=== PATIENT | male | born 1955 | race Caucasian/White ===

== ENCOUNTER 2018-04-05 19:22 | Emergency (ER) | payer OTHER, SELFPAY ==
[2018-04-05 19:37] VITALS: BP 142/76; PULSE 65; RESP 16; TEMP 36.5; O2SAT 100; BMI 26.6
--- NOTE | 2018-04-05 19:47 | ED.TRAUMA ---
HPI - Trauma <MAYA Parker - Last Filed: 04/05/18 22:11> General Chief Complaint: Extremity Injury, Upper Stated Complaint: LT THUMB INJURY Time Seen by Provider: 04/05/18 19:37 Source: patient and family Mode of arrival: ambulatory Limitations: no limitations History of Present Illness HPI narrative: Patient presented after crush injury to left thumb in a ladder 2 days ago. It occurred at work. He states is not getting any better and he is concerned about the bruising underneath the nail. He has been using ibuprofen and icing it. He denies any decreased range of motion but complains of severe pain. He states his finger did bleed initially. He is not sure when he had his last tetanus vaccination. Related Data Allergies Allergy/AdvReac Type Severity Reaction Status Date / Time bupropion [From Wellbutrin] Allergy Verified 04/05/18 20:06 varenicline [From Chantix] Allergy Verified 04/05/18 20:06 Review of Systems <MAYA Parker - Last Filed: 04/05/18 22:11> Review of Systems GENERAL: Denies chills, fatigue, malaise, fever, sweats. HEENT: Denies sinus pain, ear pain, sore throat, difficulty swallowing, dizziness. RESPIRATORY: Denies dyspnea, cough, wheezing, hemoptysis, sputum. CARDIOVASCULAR: Denies chest pain, palpitations, orthopnea, edema, GASTROINTESTINAL: Denies nausea, vomiting, abdominal pain, diarrhea, constipation, melena. : Denies dysuria, frequency, incontinence, hematuria, urinary retention. MUSCULOSKELETAL: See HPI SKIN: See HPI NEUROLOGIC: Denies weakness, headache, numbness, change in speech, confusion, seizures, incoordination. PSYCHIATRIC: No concerning psychosocial issues. 12 point review of systems is negative except for those stated above Exam <MAYA Parker - Last Filed: 04/05/18 22:11> Narrative Exam Narrative: GENERAL: This is a well-nourished, well-developed patient, in no acute distress sitting on stretcher. HEAD: Atraumatic. Normocephalic. No temporal or scalp tenderness. EYES: Pupils equal round and reactive. Extraocular motions intact. No scleral icterus. No injection or drainage. ENT: Nose without bleeding, purulent drainage or septal hematoma. Throat without erythema, tonsillar hypertrophy or exudate. Uvula midline. Airway patent. NECK: Trachea midline. No JVD or lymphadenopathy. Supple, nontender, no meningeal signs. CARDIOVASCULAR: Regular rate and rhythm. RESPIRATORY: No cough in office. GASTROINTESTINAL: Abdomen soft, non-tender, nondistended. No hepato-splenomegaly, or palpable masses. No guarding. EXTREMITIES: Range of motion intact left thumb. Pain to palpation distal phalanx left thumb. BACK: Nontender without deformity or crepitance. No flank tenderness. NEURO: AOx3. SKIN: Subungual hematoma present left thumb. Ecchymosis several approximately 4-5 mm below nail bed. Subungual hematoma took up approximately 50% of left thumb nail bed. Initial Vital Signs Initial Vital Signs: Vital Signs Temperature 97.7 F 04/05/18 19:37 Pulse Rate 65 04/05/18 19:37 Respiratory Rate 16 04/05/18 19:37 Blood Pressure 142/76 H 04/05/18 19:37 Pulse Oximetry 100 04/05/18 19:37 <Calixto Beard DO - Last Filed: 04/06/18 01:03> Initial Vital Signs Initial Vital Signs: Vital Signs Temperature 97.7 F 04/05/18 19:37 Pulse Rate 65 04/05/18 19:37 Respiratory Rate 16 04/05/18 19:37 Blood Pressure 142/76 H 04/05/18 19:37 Pulse Oximetry 100 04/05/18 19:37 Procedures <KORTNEY Parker - Last Filed: 04/05/18 22:11> Nail Trephination Time out: Yes Location (finger): left Location (toes): first digit Sterile prep: betadine Method of drainage: nail cautery Procedure successful: Yes Patient tolerated procedure: well Course <KORTNEY Parker - Last Filed: 04/05/18 22:11> Orders Ordered: ED Orders 04/05/18 19:47 XR finger LT min 2V Stat Discontinued Medications Diphtheria/Tetanus/Acell Pertussis (Adacel) 0.5 ml IM .ONCE ONE Stop: 04/05/18 19:48 Last Admin: 04/05/18 20:04 Dose: 0.5 ml Ibuprofen (Advil) 800 mg PO NOW ONE Stop: 04/05/18 20:18 Last Admin: 04/05/18 20:39 Dose: 800 mg Vital Signs - 8 hr 04/05/18 19:37 04/05/18 21:13 Temperature 97.7 F Pulse Rate 65 78 Respiratory Rate 16 16 Blood Pressure 142/76 H 145/60 H Pulse Oximetry 100 97 <Calixto Beard DO - Last Filed: 04/06/18 01:03> Orders Ordered: ED Orders 04/05/18 19:47 XR finger LT min 2V Stat Discontinued Medications Diphtheria/Tetanus/Acell Pertussis (Adacel) 0.5 ml IM .ONCE ONE Stop: 04/05/18 19:48 Last Admin: 04/05/18 20:04 Dose: 0.5 ml Ibuprofen (Advil) 800 mg PO NOW ONE Stop: 04/05/18 20:18 Last Admin: 04/05/18 20:39 Dose: 800 mg Vital Signs - 8 hr 04/05/18 19:37 04/05/18 21:13 Temperature 97.7 F Pulse Rate 65 78 Respiratory Rate 16 16 Blood Pressure 142/76 H 145/60 H Pulse Oximetry 100 97 MDM - Trauma <KORTNEY Parker - Last Filed: 04/05/18 22:11> Imaging Data finger xray: Radiologist's impression: [place] [address] XRay Report Signed Patient: Niles Michelle MR#: [id number] : 1955 Acct:[id number] Age/Sex: 63 / M Date of Service: 04/05/18 Loc: ED Accession Number: [id number] Procedure: XR finger LT min 2V Ordering Provider: Dipika Lira PROCEDURE: XR FINGER LT MIN 2V INDICATIONS: left thumb crush injury TECHNIQUE: AP hand, 2 views of the first finger(s) acquired. COMPARISON: [facility] - [place], [place], CR, WRIST COMP MIN 3VW (LT), 01/04/2009, 9:01. [facility], CR, WRIST COMP MIN 3VW (LT), 11/17/2008, 19:48. FINDINGS: Bones: No acute fractures or dislocations. Old fixation hardware is noted in distal radius. No suspicious bony lesions. Soft tissues: No suspicious soft tissue calcifications. IMPRESSION: No fractures or dislocation. Dictated by: Dorina Renteria M.D. on 04/05/2018 at 20:25 Approved by: Dorina Renteria M.D. on 04/05/2018 at 20:28 [facility] Narrative Medical decision making narrative: Patient presented with subungual hematoma. It was drained according to procedural note. Patient tolerated it well. His x-ray came back negative for any fracture. We did update his tetanus as he bled from a crush injury between a ladder. He was medicated with ibuprofen and given an ice pack for comfort in the emergency department. I discussed at length follow up with primary care provider if noted signs of infection including dirty drainage, extending redness and fever. Patient's L and I paperwork was filled out. He had no questions or concerns upon discharge. Discharge Plan Departure Patient Disposition: Home, Self-Care Clinical Impression: Hematoma, subungual, thumb, left Discharge Date/Time: 04/05/18 21:13 Interventions: ED Discharge Assessment Last Done: 04/05/18 21:13 Instructions: DI for Hematoma (Bruise), How To Perform RICE (Rest, Ice, Compress, Elevate) Activity Restrictions/Additional Instructions: Your x-ray came back negative. Monitor for any signs and symptoms of infection from the puncture site. This includes pus, fever, warmth and redness. I suggest ibuprofen for the pain. Please use rest ice elevation and compression. Follow up with the primary care provider especially if the reaccumulation of the hematoma with pain. <Calixto Beard DO - Last Filed: 04/06/18 01:03> Cosign ED Attending Gloria Attestation: I was available for consultation during this patient's emergency department encounter
[2018-04-05] MEDS: TET,DIPH,PERTUSS(ACELL),VAC/PF 0.5 ML SYRINGE IM (20:04)
[2018-04-05] MEDS: IBUPROFEN 400 MG TABLET 800 MG PO (20:39)
--- NOTE | 2018-04-05 20:59 | ED_ITS ---
HPI - Trauma <MAYA Parker - Last Filed: 04/05/18 22:11> General Chief Complaint: Extremity Injury, Upper Stated Complaint: LT THUMB INJURY Time Seen by Provider: 04/05/18 19:37 Source: patient and family Mode of arrival: ambulatory Limitations: no limitations History of Present Illness HPI narrative: Patient presented after crush injury to left thumb in a ladder 2 days ago. It occurred at work. He states is not getting any better and he is concerned about the bruising underneath the nail. He has been using ibuprofen and icing it. He denies any decreased range of motion but complains of severe pain. He states his finger did bleed initially. He is not sure when he had his last tetanus vaccination. Related Data Allergies Allergy/AdvReac Type Severity Reaction Status Date / Time bupropion [From Wellbutrin] Allergy Verified 04/05/18 20:06 varenicline [From Chantix] Allergy Verified 04/05/18 20:06 Review of Systems <MAYA Parker - Last Filed: 04/05/18 22:11> Review of Systems GENERAL: Denies chills, fatigue, malaise, fever, sweats. HEENT: Denies sinus pain, ear pain, sore throat, difficulty swallowing, dizziness. RESPIRATORY: Denies dyspnea, cough, wheezing, hemoptysis, sputum. CARDIOVASCULAR: Denies chest pain, palpitations, orthopnea, edema, GASTROINTESTINAL: Denies nausea, vomiting, abdominal pain, diarrhea, constipation, melena. : Denies dysuria, frequency, incontinence, hematuria, urinary retention. MUSCULOSKELETAL: See HPI SKIN: See HPI NEUROLOGIC: Denies weakness, headache, numbness, change in speech, confusion, seizures, incoordination. PSYCHIATRIC: No concerning psychosocial issues. 12 point review of systems is negative except for those stated above Exam <MAYA Parker - Last Filed: 04/05/18 22:11> Narrative Exam Narrative: GENERAL: This is a well-nourished, well-developed patient, in no acute distress sitting on stretcher. HEAD: Atraumatic. Normocephalic. No temporal or scalp tenderness. EYES: Pupils equal round and reactive. Extraocular motions intact. No scleral icterus. No injection or drainage. ENT: Nose without bleeding, purulent drainage or septal hematoma. Throat without erythema, tonsillar hypertrophy or exudate. Uvula midline. Airway patent. NECK: Trachea midline. No JVD or lymphadenopathy. Supple, nontender, no meningeal signs. CARDIOVASCULAR: Regular rate and rhythm. RESPIRATORY: No cough in office. GASTROINTESTINAL: Abdomen soft, non-tender, nondistended. No hepato-splenomegaly , or palpable masses. No guarding. EXTREMITIES: Range of motion intact left thumb. Pain to palpation distal phalanx left thumb. BACK: Nontender without deformity or crepitance. No flank tenderness. NEURO: AOx3. SKIN: Subungual hematoma present left thumb. Ecchymosis several approximately 4-5 mm below nail bed. Subungual hematoma took up approximately 50% of left thumb nail bed. Initial Vital Signs Initial Vital Signs: Vital Signs Temperature 97.7 F 04/05/18 19:37 Pulse Rate 65 04/05/18 19:37 Respiratory Rate 16 04/05/18 19:37 Blood Pressure 142/76 H 04/05/18 19:37 Pulse Oximetry 100 04/05/18 19:37 <Calixto Beard DO - Last Filed: 04/06/18 01:03> Initial Vital Signs Initial Vital Signs: Vital Signs Temperature 97.7 F 04/05/18 19:37 Pulse Rate 65 04/05/18 19:37 Respiratory Rate 16 04/05/18 19:37 Blood Pressure 142/76 H 04/05/18 19:37 Pulse Oximetry 100 04/05/18 19:37 Procedures <KORTNEY Parker - Last Filed: 04/05/18 22:11> Nail Trephination Time out: Yes Location (finger): left Location (toes): first digit Sterile prep: betadine Method of drainage: nail cautery Procedure successful: Yes Patient tolerated procedure: well Course <KORTNEY Parker - Last Filed: 04/05/18 22:11> Orders Ordered: ED Orders 04/05/18 19:47 XR finger LT min 2V Stat Discontinued Medications Diphtheria/Tetanus/Acell Pertussis (Adacel) 0.5 ml IM .ONCE ONE Stop: 04/05/18 19:48 Last Admin: 04/05/18 20:04 Dose: 0.5 ml Ibuprofen (Advil) 800 mg PO NOW ONE Stop: 04/05/18 20:18 Last Admin: 04/05/18 20:39 Dose: 800 mg Vital Signs - 8 hr 04/05/18 19:37 04/05/18 21:13 Temperature 97.7 F Pulse Rate 65 78 Respiratory Rate 16 16 Blood Pressure 142/76 H 145/60 H Pulse Oximetry 100 97 <Calixto Beard DO - Last Filed: 04/06/18 01:03> Orders Ordered: ED Orders 04/05/18 19:47 XR finger LT min 2V Stat Discontinued Medications Diphtheria/Tetanus/Acell Pertussis (Adacel) 0.5 ml IM .ONCE ONE Stop: 04/05/18 19:48 Last Admin: 04/05/18 20:04 Dose: 0.5 ml Ibuprofen (Advil) 800 mg PO NOW ONE Stop: 04/05/18 20:18 Last Admin: 04/05/18 20:39 Dose: 800 mg Vital Signs - 8 hr 04/05/18 19:37 04/05/18 21:13 Temperature 97.7 F Pulse Rate 65 78 Respiratory Rate 16 16 Blood Pressure 142/76 H 145/60 H Pulse Oximetry 100 97 MDM - Trauma <KORTNEY Parker - Last Filed: 04/05/18 22:11> Imaging Data finger xray: Radiologist's impression: [place] [address] XRay Report Signed Patient: Niles Michelle MR#: [id number] : 1955 Acct:[id number] Age/Sex: 63 / M Date of Service: 04/05/18 Loc: ED Accession Number: [id number] Procedure: XR finger LT min 2V Ordering Provider: Dipika Lira PROCEDURE: XR FINGER LT MIN 2V INDICATIONS: left thumb crush injury TECHNIQUE: AP hand, 2 views of the first finger(s) acquired. COMPARISON: [facility] - [place], CR, WRIST COMP MIN 3VW (LT), 2008, 9:01. [facility], CR, WRIST COMP MIN 3VW (LT), 11/17/2008, 19:48. FINDINGS: Bones: No acute fractures or dislocations. Old fixation hardware is noted in distal radius. No suspicious bony lesions. Soft tissues: No suspicious soft tissue calcifications. IMPRESSION: No fractures or dislocation. Dictated by: Dorina Renteria M.D. on 04/05/2018 at 20:25 Approved by: Dorina Renteria M.D. on 04/05/2018 at 20:28 [facility] Narrative Medical decision making narrative: Patient presented with subungual hematoma. It was drained according to procedural note. Patient tolerated it well. His x- ray came back negative for any fracture. We did update his tetanus as he bled from a crush injury between a ladder. He was medicated with ibuprofen and given an ice pack for comfort in the emergency department. I discussed at length follow up with primary care provider if noted signs of infection including dirty drainage, extending redness and fever. Patient's L and I paperwork was filled out. He had no questions or concerns upon discharge. Discharge Plan Departure Patient Disposition: Home, Self-Care Clinical Impression: Hematoma, subungual, thumb, left Discharge Date/Time: 04/05/18 21:13 Interventions: ED Discharge Assessment Last Done: 04/05/18 21:13 Instructions: DI for Hematoma (Bruise), How To Perform RICE (Rest, Ice, Compress, Elevate) Activity Restrictions/Additional Instructions: Your x-ray came back negative. Monitor for any signs and symptoms of infection from the puncture site. This includes pus, fever, warmth and redness. I suggest ibuprofen for the pain. Please use rest ice elevation and compression. Follow up with the primary care provider especially if the reaccumulation of the hematoma with pain. <Calixto Beard DO - Last Filed: 04/06/18 01:03> Cosign ED Attending Gloria Attestation: I was available for consultation during this patient's emergency department encounter
[2018-04-05 21:13] VITALS: BP 145/60; PULSE 78; RESP 16; O2SAT 97
== END 2018-04-05 21:13 | disposition home or self-care (01) ==
PROVIDERS: Emergency Provider Nurse Practitioner Family
DX: S60.112A Contusion of left thumb with damage to nail, initial encounter (principal); W23.0XXA Caught, crushed, jammed, or pinched between moving objects, initial encounter; Y99.0 Civilian activity done for income or pay
CPT/HCPCS: 11740; 73140; 90471; 99282; 99283; 90715

== ENCOUNTER → 2019-10-06 11:28 | Outpatient (CLI) | payer OTHER, SELFPAY | PROVIDERS: PCP Family Medicine; Referring Provider Family Medicine; Visit Provider Family Medicine | DX: R19.8 Other specified symptoms and signs involving the digestive system and abdomen (principal) | CPT/HCPCS: 86677 ==

== ENCOUNTER → 2019-10-16 12:36 | Outpatient (CLI) | payer OTHER, SELFPAY ==
[2019-10-16 13:28] LABS: Hemoglobin A1C% w Est Avg Glu 9.8 % (4.0-6.0)
== END ==
PROVIDERS: PCP Family Medicine; Referring Provider Family Medicine; Visit Provider Family Medicine
DX: E11.9 Type 2 diabetes mellitus without complications (principal)
CPT/HCPCS: 36415; 83036

== ENCOUNTER → 2020-01-05 12:07 | Outpatient (CLI) | payer OTHER, SELFPAY ==
[2020-01-05 13:06] LABS: Add Manual Diff / Slide Review NO; Basophils Absolute Auto 100 /uL (0-100); Basophils Percent Auto 1.6 % (0-2); Eosinophils Absolute Auto 100 /uL (0-450); Eosinophils Percent Auto 1.7 % (2-4); Hematocrit 46.3 % (41-53); Hemoglobin 16.2 g/dL (13.5-17.5); Lymphocytes Absolute Auto 1500 /uL (1100-4500); Lymphocytes Percent Auto 30.4 % (25-40); Mean Corpuscular HGB Conc 35.1 % (30-36); Mean Corpuscular Hemoglobin 32.4 PG (26-34); Mean Corpuscular Volume 92.4 fL (80-100); Monocytes Absolute Auto 600 /uL (0-900); Monocytes Percent Auto 13.1 % (3-14); Neutrophils Absolute Auto 2600 /uL (1500-7000); Neutrophils Percent Auto 53.2 % (50-75); Platelet Count 201 X10^3/uL (150-400); Red Blood Cell Count 5.02 X10^6/uL (4.5-5.9); Red Cell Distribution Width 13.6 % (11.6-14.8)
[2020-01-05 13:28] LABS: Alanine Aminotransferase 21 IU/L (<50); Albumin 4.6 g/dL (3.5-5.0); Albumin Globulin Ratio 1.3 (1.0-2.8); Alkaline Phosphatase 83 U/L (38-126); Aspartate Aminotransferase 29 IU/L (17-59); BUN Creatinine Ratio 29.7 (6-22); Bilirubin Total 0.5 mg/dL (0.2-1.3); Blood Urea Nitrogen 19 mg/dL (9-20); Calcium 9.2 mg/dL (8.4-10.2); Carbon Dioxide 24 mmol/L (22-32); Chloride 102 mmol/L (98-107); Cholesterol 195 mg/dL (140-199); Estimated Glomerular Filt Rate > 60.0 mL/min (>60); Globulin 3.5 g/dL (1.7-4.1); Glucose 149 mg/dL (80-110); HDL Cholesterol 37 mg/dL (40-60); HEMOLYSIS < 15 (0-50); LDL Cholesterol Calculated 110 mg/dL (<100); Potassium 3.8 mmol/L (3.4-5.1); Sodium 139 mmol/L (137-145); Total Protein 8.1 g/dL (6.3-8.2); Triglycerides 238 mg/dL (35-150)
[2020-01-05 13:57] LABS: TSH w/ Reflex to FT4 2.04 uIU/mL (0.47-4.68)
[2020-01-05 14:52] LABS: Hemoglobin A1C% w Est Avg Glu 8.4 % (4.0-6.0)
== END ==
PROVIDERS: PCP Family Medicine; Referring Provider Family Medicine; Visit Provider Family Medicine
DX: Z12.5 Encounter for screening for malignant neoplasm of prostate (principal); Z13.29 Encounter for screening for other suspected endocrine disorder; E11.9 Type 2 diabetes mellitus without complications; E55.9 Vitamin D deficiency, unspecified; E78.5 Hyperlipidemia, unspecified; I10 Essential (primary) hypertension
CPT/HCPCS: 36415; 80053; 80061; 82306; 83036; 84443; 85025

== ENCOUNTER 2020-04-02 13:11 | Emergency (ER) | payer OTHER, SELFPAY ==
[2020-04-02 13:15] VITALS: BP 185/99; PULSE 79; RESP 20; TEMP 37.3; O2SAT 97
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
== END 2020-04-02 14:53 | disposition home or self-care (01) ==
PROVIDERS: Emergency Provider Nurse Practitioner Family; PCP Family Medicine
DX: S16.1XXA Strain of muscle, fascia and tendon at neck level, initial encounter (principal); V89.2XXA Person injured in unspecified motor-vehicle accident, traffic, initial encounter; I10 Essential (primary) hypertension; E11.9 Type 2 diabetes mellitus without complications
CPT/HCPCS: 71046; 99281; 99283

== ENCOUNTER → 2020-04-22 12:40 | Outpatient (CLI) | payer OTHER, SELFPAY ==
[2020-04-22 13:56] LABS: Hemoglobin A1C% w Est Avg Glu 8.3 % (4.0-6.0)
== END ==
PROVIDERS: PCP Family Medicine; Referring Provider Family Medicine; Visit Provider Family Medicine
DX: E11.9 Type 2 diabetes mellitus without complications (principal)
CPT/HCPCS: 36415; 83036

== ENCOUNTER → 2020-04-26 10:07 | Outpatient (CLI) | payer OTHER, SELFPAY ==
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
== END ==
PROVIDERS: PCP Family Medicine; Referring Provider Family Medicine; Visit Provider Family Medicine
DX: M54.40 Lumbago with sciatica, unspecified side (principal); M47.817 Spondylosis without myelopathy or radiculopathy, lumbosacral region
CPT/HCPCS: 72100

== ENCOUNTER → 2020-05-24 10:45 | Outpatient (CLI) | payer OTHER, SELFPAY ==
--- NOTE | 2020-05-24 10:48 | DI.MRI.S_ITS ---
PROCEDURE: MR LUMBAR SPINE WO CON INDICATIONS: worsening lumbar pain with worsening radiculopathy TECHNIQUE: Noncontrast sagittal T1 spin echo and T2 fast echo, sagittal STIR, axial T1 and T2 fast spin echo through the lumbar spine. In cases with scoliosis, additional coronal T2 fast spin echo may be performed. COMPARISON: [facility], CR, XR LUMBAR SPINE 2-3V, 04/26/2020, 10:00. FINDINGS: Image quality: Excellent. Alignment and Curvature: 5 lumbar type vertebral bodies are present by plain film. There is loss of normal lumbar lordosis. There is mild, grade 1 retrolisthesis of L5 on S1. Bone Marrow: Marrow is of normal overall signal. No acute vertebral body compression fractures. Moderate reactive signal within the endplates adjacent to the L5-S1 intervertebral disc. Spinal Cord: Conus medullaris terminates at the mid L2 level. Visualized cord demonstrates normal signal and size. Paraspinous Soft Tissues: No paravertebral masses. There is mild ectasia of the infrarenal abdominal aorta measuring 26 mm short axis. L1-L2: Normal appearance. L2-L3: Normal appearance. L3-L4: Normal appearance. L4-L5: Mild facet hypertrophy. No significant canal, or foraminal stenosis. L5-S1: Moderate disc height loss and desiccation. Mild diffuse disc bulge with small superimposed right paracentral protrusion. Mild bilateral facet hypertrophy. Mild canal stenosis. There is severe bilateral foraminal stenosis with bilateral L5 nerve root compression. There is mild posterior deviation of the right S1 nerve root within the lateral recess. IMPRESSION: 1. Multilevel degenerative disc and facet disease, causing mild multilevel canal stenosis. 2. Multilevel foraminal stenosis, worst at L5-S1, where there is associated L5 nerve root compression. 3. Posterior deviation of the right S1 nerve root within the lateral recess at L5-S1 as described above. 4. Recommend correlation with clinical symptoms to ascertain relevance of these findings. Dictated by: Félix Hopkins M.D. on 05/24/2020 at 14:23 Approved by: Félix Hopkins M.D. on 05/24/2020 at 14:26
== END ==
PROVIDERS: PCP Family Medicine; Referring Provider Family Medicine; Visit Provider Family Medicine
DX: M51.17 Intervertebral disc disorders with radiculopathy, lumbosacral region (principal); M48.07 Spinal stenosis, lumbosacral region; G57.00 Lesion of sciatic nerve, unspecified lower limb
CPT/HCPCS: 72148

== ENCOUNTER → 2020-08-07 13:09 | Outpatient (CLI) | payer OTHER, SELFPAY | PROVIDERS: PCP Family Medicine; Referring Provider Family Medicine; Visit Provider Family Medicine | DX: E11.9 Type 2 diabetes mellitus without complications (principal) | CPT/HCPCS: 36415; 83036 ==

== ENCOUNTER 2020-09-25 12:15 | Outpatient (RCR) | payer OTHER, SELFPAY ==
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
--- NOTE | 2020-07-08 13:25 | PT-OP ANOTE ---
Pt is a no show to appointment. PT calls and leaves message with next appointment date and time 07/11 at 1300 and asks pt to call if he cannot attend that appointment.
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
--- NOTE | 2020-07-11 13:47 | PT.OPPOC ---
Physical, Occupational & Speech Therapy At [facility] Current Diagnoses Lesion of sciatic nerve, unspecified lower limb (07/11/20) Lumbago with sciatica, right side (07/11/20) Lumbago with sciatica, left side (07/11/20) Visit Care Team Role Provider Type Daniel Jensen DO Attending Provider Physician Primary Care Provider Referring Provider Specialty: [facility] Address: [address] [place] [address], [facility] Email: Plan Of Care PT-OP-T Assessment and Plan Start: 05/31/20 10:56 Freq: Status: Active Protocol: Document 07/11/20 13:03 MB (Rec: 07/11/20 13:47 MB [id number]) Physical Therapy Assessment Goals 4 Mine 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 07/11/2020: Right hip flexion and abduction 5/5 in supine and left hip flexion 5/5 and left hip abduction 4/5. LTG Duration 8 weeks 3 [facility] Goal (LTG) Pt will report a 75% improvement in LE paresthesias to indicate centralization of symptoms by 08/29/2020. 07/11/2020: Pt reports a 50% improvement in numbness and tingling in right leg since starting PT. He does have recurrence of symptoms with any overhead work LTG Duration 8 weeks 2 [facility]ci Goal (LTG) Pt will perform progressive HEP with I including flexibility, pelvic realignment, core and LE strengthening, balance, and ergonomic and body trimmer upholsterer training to improve strength and function by 08/29/2020. 07/11/2020: Pt is performing exercises as much as he can at home. He has trouble on work days (-) LTG Duration 8 weeks 1 [facility] Goal (LTG) Pt will present with improved Oswestry LBP score to reflect no more than 10% impairment to reflect less pain with function and to prepare for safe work by 08/29/2020. 07/11/2020: Oswestry LBP score is 20%, which is a 12% improvement from initial evaluation. LTG Duration 8 weeks Assessment Summary Assessment Since starting PT, pt reports less pain when driving during his commute and less trouble getting in and out of car. He con't to report pain in his back and paresthesias in his leg with working overhead. He may have an antomical anomaly/ derangement contributing to this and may benefit from further work-up in the future. It is unclear how much he has been performing his HEP exercises. Reviewed again today and revised. He will benefit from ongoing PT to improve flexibility, posture, core and LE strength and body mechanics. Barriers include job requirements of overhead work, long drive for commute to work and questionable compliance with HEP. Physical Therapy Plan Frequency and Duration Frequency of Treatment 2x/Week Duration of Treatment 8 weeks Plan of Care Start Date 07/11/20 Plan of Care End Date 08/29/20 Therapeutic Interventions Therapeutic Interventions Balance Training,Canalithic Repositioning,Home Exercise Program,Joint Mobilizations, Manual Therapy,Neuromuscular Re-education,Patient/Caregiver Education,Self-Care/Home Management,Soft Tissue Mobilization,Taping, Therapeutic Activities, Therapeutic Exercises Next Visit Focus/Plan Next Note Type Treatment Note Next Visit Plan Further advance exercises as appropriate: standing calf and hamstring stretches, thoracic stretch in standing (doorway) and racquet ball massage Plan of Care Dates Plan of Care Start Date 07/11/20 Plan of Care End Date 08/29/20 Electronically Signed by: Alba Perez, PT 07/11/20 [id number] Please Sign and Return: I have reviewed this Plan of Care and certify that the skilled therapy services above are required to meet the patient?s needs. Physician Signature Date Printed Name and Credentials Clinical Instructor Signature Printed Name and Credentials
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
--- NOTE | 2020-08-26 13:31 | PT.OPPOC ---
Physical, Occupational & Speech Therapy At [facility] Current Diagnoses Lesion of sciatic nerve, unspecified lower limb (08/26/20) Lumbago with sciatica, right side (08/26/20) Lumbago with sciatica, left side (08/26/20) Visit Care Team Role Provider Type Daniel Jensen DO Attending Provider Physician Primary Care Provider Referring Provider Specialty: [facility] Address: [address] [place] [address], [facility] Email: Plan Of Care PT-OP-T Assessment and Plan Start: 05/31/20 10:56 Freq: Status: Active Protocol: Document 08/26/20 12:17 MB (Rec: 08/26/20 13:16 MB [id number]) Physical Therapy Assessment Rehab Potential Rehabilitation Potential Good Evaluation Complexity Number of Personal Factors/Comorbidities 1-2 Number of Body Systems Impaired 1-2 Clinical Presentation at Evaluation Evolving Impairments Impairments Pain,Posture,ROM,Sensation, Soft Tissue Mobility,Strength Goals 4 Seed Cleaner Operator Goal (LTG) Pt will present with improved R hip abduction and great toe extension strength to 5/5 to improve gait and balance by . 08/26/2020: Left hip abduction is 5/5 today LTG Duration Met 3 Correction Goal (LTG) Pt will report a 75% improvement in LE paresthesias to indicate centralization of symptoms by 08/29/2020. 08/26/2020: Pt reports an overall 75% improvement in LE paresthesias LTG Duration Met 2 Correction Goal (LTG) Pt will perform progressive HEP with I including flexibility, pelvic realignment, core and LE strengthening, balance, and ergonomic and body stylist training to improve strength and function by 10/27/20. 08/26/2020: Pt is performing stretching exercises at work at least twice. LTG Duration 8 weeks 1 Correction Goal (LTG) Pt will present with improved Oswestry LBP score to reflect no more than 5% impairment to reflect less pain with function and to prepare for safe work by 10/27/2020. 08/26/2020: Oswestry LBP score is much better and reflects 8 % impairment. He is having less pain overall and less pain with traveling. LTG Duration 8 weeks Progress Towards Goals Progress Towards Goals Progressing Toward Goals Assessment Summary Assessment Pt states that after last manual treatment, he felt a lot better for about a week. He is performing exercises at work and PT will review with him in future PT treatments. He has met LE strengthening goals, paresthesia goals and has progressed towards Oswestry goal that was updated today. Con't PT to improve myofascial flexibility and posture, ongoing body mechanics training. Pt has progressed towards all goals since starting PT. Anticipate 2 treatments this week and then decrease to 1x/wk. Physical Therapy Plan Frequency and Duration Frequency of Treatment 2x/Week Duration of Treatment 8 weeks Plan of Care Start Date 08/26/20 Plan of Care End Date 10/27/20 Therapeutic Interventions Therapeutic Interventions Balance Training,Canalithic Repositioning,Home Exercise Program,Joint Mobilizations, Manual Therapy,Neuromuscular Re-education,Patient/Caregiver Education,Self-Care/Home Management,Soft Tissue Mobilization,Taping, Therapeutic Activities, Therapeutic Exercises Modalities Cold Pack/Ice Massage,Hot Packs Next Visit Focus/Plan Next Note Type Treatment Note Next Visit Plan Review and revise exercises as needed. Con't manual work. Do not add further standing stretches. Plan of Care Dates Plan of Care Start Date 08/26/20 Plan of Care End Date 10/27/20 Electronically Signed by: Alba Perez, PT 08/26/20 2718 Please Sign and Return: I have reviewed this Plan of Care and certify that the skilled therapy services above are required to meet the patient?s needs. Physician Signature Date Printed Name and Credentials Clinical Instructor Signature Printed Name and Credentials
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
== END 2020-09-30 15:00 ==
LOC: PHYS 12:15
PROVIDERS: PCP Family Medicine; Referring Provider Family Medicine; Visit Provider Family Medicine
DX: M54.42 Lumbago with sciatica, left side (principal); M54.41 Lumbago with sciatica, right side; G57.00 Lesion of sciatic nerve, unspecified lower limb
CPT/HCPCS: 97010; 97110; 97140; 97161; 97530; 97535

== ENCOUNTER → 2020-11-20 13:07 | Outpatient (CLI) | payer OTHER, SELFPAY ==
[2020-11-20 14:02] LABS: Add Manual Diff / Slide Review NO; Basophils Absolute Auto 100 /uL (0-100); Basophils Percent Auto 1.3 % (0-2); Eosinophils Absolute Auto 100 /uL (0-450); Eosinophils Percent Auto 2.3 % (2-4); Hematocrit 47.1 % (41-53); Hemoglobin 16.2 g/dL (13.5-17.5); Lymphocytes Absolute Auto 1500 /uL (1100-4500); Lymphocytes Percent Auto 33.7 % (25-40); Mean Corpuscular HGB Conc 34.5 % (30-36); Mean Corpuscular Hemoglobin 32.2 PG (26-34); Mean Corpuscular Volume 93.3 fL (80-100); Monocytes Absolute Auto 700 /uL (0-900); Monocytes Percent Auto 14.5 % (3-14); Neutrophils Absolute Auto 2200 /uL (1500-7000); Neutrophils Percent Auto 48.2 % (50-75); Platelet Count 209 X10^3/uL (150-400); Red Blood Cell Count 5.05 X10^6/uL (4.5-5.9); Red Cell Distribution Width 13.9 % (11.6-14.8); White Blood Cell Count 4.6 X10^3/uL (4.5-11.0)
[2020-11-20 15:11] LABS: Alanine Aminotransferase 16 IU/L (<50); Albumin 4.4 g/dL (3.5-5.0); Albumin Globulin Ratio 1.3 (1.0-2.8); Alkaline Phosphatase 74 U/L (38-126); Aspartate Aminotransferase 29 IU/L (17-59); BUN Creatinine Ratio 29.8 (6-22); Bilirubin Total 0.5 mg/dL (0.2-1.3); Blood Urea Nitrogen 17 mg/dL (9-20); Carbon Dioxide 24 mmol/L (22-32); Chloride 102 mmol/L (98-107); Cholesterol 250 mg/dL (140-199); Estimated Glomerular Filt Rate > 60.0 mL/min (>60); Globulin 3.3 g/dL (1.7-4.1); Glucose 158 mg/dL (80-110); HDL Cholesterol 48 mg/dL (40-60); HEMOLYSIS 67 (0-50); LDL Cholesterol Calculated 136 mg/dL (<100); Potassium 3.9 mmol/L (3.4-5.1); Sodium 136 mmol/L (137-145); Total Protein 7.7 g/dL (6.3-8.2); Triglycerides 328 mg/dL (35-150)
[2020-11-20 15:12] LABS: Hemoglobin A1C% w Est Avg Glu 7.7 % (4.0-6.0)
[2020-11-20 15:41] LABS: Prostate Specific Antigen Scrn 0.623 ng/mL (0.1-4.0)
== END ==
PROVIDERS: PCP Family Medicine; Referring Provider Family Medicine; Visit Provider Family Medicine
DX: E11.9 Type 2 diabetes mellitus without complications (principal); E78.5 Hyperlipidemia, unspecified; I10 Essential (primary) hypertension; Z12.5 Encounter for screening for malignant neoplasm of prostate
CPT/HCPCS: 36415; 80053; 80061; 83036; 85025; G0103

== ENCOUNTER → 2021-03-03 09:31 | Outpatient (CLI) | payer OTHER, SELFPAY ==
--- NOTE | 2021-03-03 09:33 | DI.RAD.S_ITS ---
PROCEDURE: XR FOOT LT MIN 3V INDICATIONS: left foot pain TECHNIQUE: 3 views of the foot were acquired. COMPARISON: None. FINDINGS: Bones: No fractures or dislocations. No suspicious bony lesions. Soft tissues: No tibiotalar joint effusion. Achilles tendon appears normal. IMPRESSION: No trauma found. Dictated by: Collin Pires M.D. on 03/03/2021 at 10:06 Approved by: Collin Pires M.D. on 03/03/2021 at 10:06
== END ==
PROVIDERS: PCP Family Medicine; Referring Provider Physician Assistant; Visit Provider Physician Assistant
DX: M79.672 Pain in left foot (principal)
CPT/HCPCS: 73630

== ENCOUNTER → 2021-03-06 14:35 | Outpatient (CLI) | payer OTHER, SELFPAY ==
[2021-03-06 15:12] LABS: COVID19 -Nasal RAPID Negative (Negative)
== END ==
PROVIDERS: PCP Family Medicine; Visit Provider Family Medicine
DX: R05 Cough (principal); Z20.822 Contact with and (suspected) exposure to COVID-19
CPT/HCPCS: 87635

== ENCOUNTER → 2021-05-22 09:58 | Outpatient (CLI) | payer OTHER, SELFPAY ==
[2021-05-22 10:51] LABS: Add Manual Diff / Slide Review NO; Basophils Absolute Auto 100 /uL (0-100); Eosinophils Absolute Auto 100 /uL (0-450); Eosinophils Percent Auto 1.6 % (2-4); Hematocrit 47.8 % (41-53); Hemoglobin 16.1 g/dL (13.5-17.5); Lymphocytes Absolute Auto 1400 /uL (1100-4500); Lymphocytes Percent Auto 24.9 % (25-40); Mean Corpuscular HGB Conc 33.8 % (30-36); Mean Corpuscular Volume 94.7 fL (80-100); Monocytes Absolute Auto 800 /uL (0-900); Monocytes Percent Auto 14.4 % (3-14); Neutrophils Absolute Auto 3200 /uL (1500-7000); Neutrophils Percent Auto 58.1 % (50-75); Platelet Count 220 X10^3/uL (150-400); Red Blood Cell Count 5.05 X10^6/uL (4.5-5.9); Red Cell Distribution Width 13.9 % (11.6-14.8); White Blood Cell Count 5.4 X10^3/uL (4.5-11.0)
[2021-05-22 11:05] LABS: Hemoglobin A1C% w Est Avg Glu 7.3 % (4.0-6.0)
[2021-05-22 11:34] LABS: Alanine Aminotransferase 14 IU/L (<50); Albumin 4.2 g/dL (3.5-5.0); Albumin Globulin Ratio 1.4 (1.0-2.8); Alkaline Phosphatase 78 U/L (38-126); Aspartate Aminotransferase 20 IU/L (17-59); BUN Creatinine Ratio 26.1 (6-22); Bilirubin Total 0.8 mg/dL (0.2-1.3); Blood Urea Nitrogen 18 mg/dL (9-20); Calcium 9.1 mg/dL (8.4-10.2); Carbon Dioxide 29 mmol/L (22-32); Chloride 102 mmol/L (98-107); Cholesterol 210 mg/dL (140-199); Estimated Glomerular Filt Rate > 60.0 mL/min (>60); Globulin 3.1 g/dL (1.7-4.1); Glucose 147 mg/dL (80-110); HDL Cholesterol 43 mg/dL (40-60); HEMOLYSIS < 15 (0-50); LDL Cholesterol Calculated 119 mg/dL (<100); Potassium 3.7 mmol/L (3.4-5.1); Sodium 137 mmol/L (137-145); Total Protein 7.3 g/dL (6.3-8.2); Triglycerides 241 mg/dL (35-150)
== END ==
PROVIDERS: PCP Family Medicine; Referring Provider Family Medicine; Visit Provider Family Medicine
DX: E11.42 Type 2 diabetes mellitus with diabetic polyneuropathy (principal); E78.5 Hyperlipidemia, unspecified; I10 Essential (primary) hypertension; Z12.5 Encounter for screening for malignant neoplasm of prostate
CPT/HCPCS: 36415; 80053; 80061; 83036; 85025

== ENCOUNTER 2021-06-17 12:15 | Outpatient (RCR) | payer OTHER, SELFPAY ==
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
--- NOTE | 2021-05-02 13:44 | PT.OTN ---
Current Diagnoses Lumbago with sciatica, right side (05/02/21) Lumbago with sciatica, left side (05/02/21) Physical Therapy Treatment Note PT-OP-A Visit Information Start: 04/30/21 12:12 Freq: Status: Active Protocol: Document 05/02/21 12:59 MB (Rec: 05/02/21 13:40 MB [id number]) Out-Patient Physical Therapy Visit Information Visit Information Visit Type Treatment Note Visit Note [facility], self-pay Visit Start Time 12:59 Visit Stop Time 13:44 Total Visit Minutes 45 Visit Number 2 PT-OP-B Current Condition Start: 04/30/21 12:12 Freq: Status: Active Protocol: Document 05/01/21 10:30 MB (Rec: 05/01/21 10:50 MB [id number]) Current Condition History of Current Condition Onset Date Progressive Current Complaints LB and posterior leg pain returning History of Current Condition Pt returns with recurrence of back pain after lifting ceiling fan up on 5th wheel over the weekend. He had PT the end of last year and his pain had gotten better. He has not been performing exercises . The pain has progressively returned. He con't to have the most LB and B posterior leg pain when reaching overhead. 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 He has fallen a couple of times. The steps going up to the RV are different than regular steps. Pt con't to smoke 3-4 cigarettes a day and is vaping more. 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 MRI 05/24/2020 reveals many changes including multilevel DDD, stenosis, L5 nerve root compression with deviation of right S1 nerve root, lateral recess at L5-S1 Treatment Goals Patient/Caregiver Goals To decrease pain PT-OP-C Subjective Start: 04/30/21 12:12 Freq: Status: Active Protocol: Document 05/02/21 12:59 MB (Rec: 05/02/21 13:40 MB [id number]) OP-PT Subjective Patient Comments Patient Comments Pt states that he was sore after PT evaluation. Work was hectic last night. PT-OP-G Mobility & Gait Start: 04/30/21 12:12 Freq: Status: Active Protocol: Document 05/01/21 10:30 MB (Rec: 05/01/21 15:40 MB [id number]) OP Gait Assessment Comments Gait Comments Gait barefoot: decreased pelvic movement B, walks stiffer through the right leg and pt states that his right ball of foot and toes are starting to bother him as far as paresthesias. Decreased arm swing with gait. PT-OP-J Posture/Palpation/Skin Start: 04/30/21 12:12 Freq: Status: Active Protocol: Document 05/01/21 10:30 MB (Rec: 05/01/21 15:40 MB [id number]) Posture Evaluation Comments Posture Comments Standing posture in bare feet: forward head, rounded shoulders, decreased overall muscle mass and increased abdominal soft tissue, Dowager 's hump, left scapula higher than the right and right iliac crest higher than the left. PT-OP-K Range of Motion Start: 04/30/21 12:12 Freq: Status: Active Protocol: Document 05/01/21 10:30 MB (Rec: 05/01/21 15:40 MB [id number]) Hip Goniometric Range of Motion Hip ROM Limitations Comments B SLR limited with grossly 40 deg B and more compensatory movement with left testing PT-OP-M Strength Start: 04/30/21 12:12 Freq: Status: Active Protocol: Document 05/01/21 10:30 MB (Rec: 05/01/21 15:40 MB [id number]) Hip Strength Hip Manual Muscle Testing Bilateral Flexion (L2) 5 Normal Abduction 5 Normal Adduction 5 Normal Knee Strength Knee Manual Muscle Testing Bilateral Flexion (S2) 5 Normal Extension (L3) 5 Normal Ankle/Foot Strength Ankle and Foot Manual Muscle Testing Bilateral Dorsiflexion (L4) 5 Normal Inversion 5 Normal Eversion (S1) 5 Normal Toe Strength Toe Manual Muscle Testing Left Great Toe Extension 4 Good Right Great Toe Extension 4 Good PT-OP-Q Treatments Start: 04/30/21 12:12 Freq: Status: Active Protocol: Document 05/02/21 12:59 MB (Rec: 05/02/21 13:40 MB [id number]) Therapeutic Exercises Supine Exercises Niles stretch with abdominal drawing in first Side bilateral Comments Pelvic tilt and tummy tight first, then leg off Pelvic realignment exercises Side bilateral Comments 5 reps, 3 sec hold all exercises Sitting Exercises Hip rotator stretch Side bilateral Comments 30 sec hold each Hamstring stretch, toes up Side bilateral Comments 30 sec hold Standing Exercises Racquet ball massage glutes and paraspinals Comments Pt performs today all areas Self-Care/Home Management Treatment Education Other Education Body mechanics ed with photo handouts to include planning before lifting, using glutes and quads, bending at knees, golfer's list, proper desk set up and car seat position PT-OP-T Assessment and Plan Start: 04/30/21 12:12 Freq: Status: Active Protocol: Document 05/02/21 12:59 MB (Rec: 05/02/21 13:40 MB [id number]) Physical Therapy Assessment Rehab Potential Rehabilitation Potential Fair Evaluation Complexity Number of Personal Factors/Comorbidities 3 or More Number of Body Systems Impaired 3 Clinical Presentation at Evaluation Evolving Impairments Impairments Activity Tolerance,Gait,Pain, Posture,ROM,Sensation,Soft Tissue Mobility,Strength Other Impairments Personal factors include 2 hour commute by car 4-5x/wk, working 55 hours a week, ongoing nicotine use, not compliant with HEP as previously provided by this PT . Body systems affected include musculoskeletal, neuromuscular, metabolic and neurological. Pt reports right greater than left toe paresthesias and he has a history of DM and right sciatica with lumbar changes. His clinical presentation is evolving to unstable. Other Concerns Fall Risk Yes Goals 3 Senior Technical Specialist Goal (LTG) Pt will perform WNLs on a standardized balance test to decrease fall risk by 07/01/21. LTG Duration 8 weeks 2 [facility]ci Goal (LTG) Pt will be compliant with progressive HEP including pelvic realignment, flexibility, core and LE strengthening, balance and body mechanics to decrease pain and improve strength by 07/01/21. LTG Duration 8 weeks 1 Senior Technical Specialist Goal (LTG) Pt will report a 75% improvement in back and leg pain to improve quality of life by 07/01/21. LTG Duration 8 weeks Assessment Summary Assessment Initiated pelvic realignment, sitting flexibility, racquet ball and ergonomic training today. Con't to encourage pt to make these small changes in his daily routine. Manual work next treatment date. Physical Therapy Plan Frequency and Duration Frequency of Treatment 2x/Week Duration of Treatment 8 weeks Plan of Care Start Date 05/01/21 Plan of Care End Date 07/01/21 Therapeutic Interventions Therapeutic Interventions Balance Training,Canalithic Repositioning,Gait Training, Home Exercise Program,Joint Mobilizations,Manual Therapy, Neuromuscular Re-education, Patient/Caregiver Education, Self-Care/Home Management,Soft Tissue Mobilization,Taping, Therapeutic Activities, Therapeutic Exercises Modalities Cold Pack/Ice Massage,Hot Packs Other Referrals/Consults Referrals/Consults Recommended Pain specialist referral Next Visit Focus/Plan Next Note Type Treatment Note Next Visit Plan Progressive flexibility and core progression, manual work
--- NOTE | 2021-05-16 13:15 | PT.OTN ---
Current Diagnoses Lumbago with sciatica, right side (05/16/21) Lumbago with sciatica, left side (05/16/21) Physical Therapy Treatment Note PT-OP-A Visit Information Start: 04/30/21 12:12 Freq: Status: Active Protocol: Document 05/16/21 12:17 MB (Rec: 05/16/21 13:06 MB [id number]) Out-Patient Physical Therapy Visit Information Visit Information Visit Type Treatment Note Visit Note [facility], self-pay Visit Start Time 12:17 Visit Stop Time 13:17 Total Visit Minutes 60 Visit Number 3 PT-OP-B Current Condition Start: 04/30/21 12:12 Freq: Status: Active Protocol: Document 05/01/21 10:30 MB (Rec: 05/01/21 10:50 MB [id number]) Current Condition History of Current Condition Onset Date Progressive Current Complaints LB and posterior leg pain returning History of Current Condition Pt returns with recurrence of back pain after lifting ceiling fan up on 5th wheel over the weekend. He had PT the end of last year and his pain had gotten better. He has not been performing exercises . The pain has progressively returned. He con't to have the most LB and B posterior leg pain when reaching overhead. 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 He has fallen a couple of times. The steps going up to the RV are different than regular steps. Pt con't to smoke 3-4 cigarettes a day and is vaping more. 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 MRI 05/24/2020 reveals many changes including multilevel DDD, stenosis, L5 nerve root compression with deviation of right S1 nerve root, lateral recess at L5-S1 Treatment Goals Patient/Caregiver Goals To decrease pain PT-OP-C Subjective Start: 04/30/21 12:12 Freq: Status: Active Protocol: Document 05/16/21 12:17 MB (Rec: 05/16/21 13:06 MB [id number]) OP-PT Subjective Patient Comments Patient Comments Pt states that his back is the same and he has been trying some of his exercises and doesn't know if he is doing them correctly. PT-OP-G Mobility & Gait Start: 04/30/21 12:12 Freq: Status: Active Protocol: Document 05/01/21 10:30 MB (Rec: 05/01/21 15:40 MB [id number]) OP Gait Assessment Comments Gait Comments Gait barefoot: decreased pelvic movement B, walks stiffer through the right leg and pt states that his right ball of foot and toes are starting to bother him as far as paresthesias. Decreased arm swing with gait. PT-OP-J Posture/Palpation/Skin Start: 04/30/21 12:12 Freq: Status: Active Protocol: Document 05/01/21 10:30 MB (Rec: 05/01/21 15:40 MB [id number]) Posture Evaluation Comments Posture Comments Standing posture in bare feet: forward head, rounded shoulders, decreased overall muscle mass and increased abdominal soft tissue, Dowager 's hump, left scapula higher than the right and right iliac crest higher than the left. PT-OP-K Range of Motion Start: 04/30/21 12:12 Freq: Status: Active Protocol: Document 05/01/21 10:30 MB (Rec: 05/01/21 15:40 MB [id number]) Hip Goniometric Range of Motion Hip ROM Limitations Comments B SLR limited with grossly 40 deg B and more compensatory movement with left testing PT-OP-M Strength Start: 04/30/21 12:12 Freq: Status: Active Protocol: Document 05/01/21 10:30 MB (Rec: 05/01/21 15:40 MB [id number]) Hip Strength Hip Manual Muscle Testing Bilateral Flexion (L2) 5 Normal Abduction 5 Normal Adduction 5 Normal Knee Strength Knee Manual Muscle Testing Bilateral Flexion (S2) 5 Normal Extension (L3) 5 Normal Ankle/Foot Strength Ankle and Foot Manual Muscle Testing Bilateral Dorsiflexion (L4) 5 Normal Inversion 5 Normal Eversion (S1) 5 Normal Toe Strength Toe Manual Muscle Testing Left Great Toe Extension 4 Good Right Great Toe Extension 4 Good PT-OP-Q Treatments Start: 04/30/21 12:12 Freq: Status: Active Protocol: Document 05/16/21 12:17 MB (Rec: 05/16/21 13:06 MB [id number]) Therapeutic Exercises Supine Exercises Niles stretch with abdominal drawing in first Side bilateral Comments Pelvic tilt and tummy tight first, then leg off Pelvic realignment exercises Side bilateral Comments 5 reps, 3 sec hold all exercises Sitting Exercises Hip rotator stretch Side bilateral Comments 30 sec hold each Hamstring stretch, toes up Side bilateral Comments 30 sec hold Manual Therapy Treatment Other Other Manual Treatments Pt kneeling on wedge and leaning over plinth: STM B thoracolumbar paraspinals, QL, TFL and hip rotators. Pt has area of cyst-like or lipoma in left thoracic area intrascapular area. Pt does have discomfort in this area. PT-OP-T Assessment and Plan Start: 04/30/21 12:12 Freq: Status: Active Protocol: Document 05/16/21 12:17 MB (Rec: 05/16/21 13:06 MB [id number]) Physical Therapy Assessment Rehab Potential Rehabilitation Potential Fair Evaluation Complexity Number of Personal Factors/Comorbidities 3 or More Number of Body Systems Impaired 3 Clinical Presentation at Evaluation Evolving Impairments Impairments Activity Tolerance,Gait,Pain, Posture,ROM,Sensation,Soft Tissue Mobility,Strength Other Impairments Personal factors include 2 hour commute by car 4-5x/wk, working 55 hours a week, ongoing nicotine use, not compliant with HEP as previously provided by this PT . Body systems affected include musculoskeletal, neuromuscular, metabolic and neurological. Pt reports right greater than left toe paresthesias and he has a history of DM and right sciatica with lumbar changes. His clinical presentation is evolving to unstable. Other Concerns Fall Risk Yes Goals 3 Supervisor Soldering Goal (LTG) Pt will perform WNLs on a standardized balance test to decrease fall risk by 07/01/21. LTG Duration 8 weeks 2 Supervisor Soldering Goal (LTG) Pt will be compliant with progressive HEP including pelvic realignment, flexibility, core and LE strengthening, balance and body mechanics to decrease pain and improve strength by 07/01/21. LTG Duration 8 weeks 1 Alf Goal (LTG) Pt will report a 75% improvement in back and leg pain to improve quality of life by 07/01/21. LTG Duration 8 weeks Assessment Summary Assessment Reviewed exercises and answered questions today. Also initiated manual work. Con't per below. Physical Therapy Plan Frequency and Duration Frequency of Treatment 2x/Week Duration of Treatment 8 weeks Plan of Care Start Date 05/01/21 Plan of Care End Date 07/01/21 Therapeutic Interventions Therapeutic Interventions Balance Training,Canalithic Repositioning,Gait Training, Home Exercise Program,Joint Mobilizations,Manual Therapy, Neuromuscular Re-education, Patient/Caregiver Education, Self-Care/Home Management,Soft Tissue Mobilization,Taping, Therapeutic Activities, Therapeutic Exercises Modalities Cold Pack/Ice Massage,Hot Packs Other Referrals/Consults Referrals/Consults Recommended Pain specialist referral Next Visit Focus/Plan Next Note Type Treatment Note Next Visit Plan Progressive flexibility and core progression, manual work
--- NOTE | 2021-05-20 12:59 | PT.OTN ---
Current Diagnoses Lumbago with sciatica, right side (05/20/21) Lumbago with sciatica, left side (05/20/21) Physical Therapy Treatment Note PT-OP-A Visit Information Start: 04/30/21 12:12 Freq: Status: Active Protocol: Document 05/20/21 12:14 MB (Rec: 05/20/21 12:36 MB [id number]) Out-Patient Physical Therapy Visit Information Visit Information Visit Type Treatment Note Visit Note [facility], self-pay Visit Start Time 12:14 Visit Stop Time 12:55 Total Visit Minutes 41 Visit Number 4 PT-OP-B Current Condition Start: 04/30/21 12:12 Freq: Status: Active Protocol: Document 05/01/21 10:30 MB (Rec: 05/01/21 10:50 MB [id number]) Current Condition History of Current Condition Onset Date Progressive Current Complaints LB and posterior leg pain returning History of Current Condition Pt returns with recurrence of back pain after lifting ceiling fan up on 5th wheel over the weekend. He had PT the end of last year and his pain had gotten better. He has not been performing exercises . The pain has progressively returned. He con't to have the most LB and B posterior leg pain when reaching overhead. 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 He has fallen a couple of times. The steps going up to the RV are different than regular steps. Pt con't to smoke 3-4 cigarettes a day and is vaping more. 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 MRI 05/24/2020 reveals many changes including multilevel DDD, stenosis, L5 nerve root compression with deviation of right S1 nerve root, lateral recess at L5-S1 Treatment Goals Patient/Caregiver Goals To decrease pain PT-OP-C Subjective Start: 04/30/21 12:12 Freq: Status: Active Protocol: Document 05/20/21 12:14 MB (Rec: 05/20/21 12:36 MB [id number]) OP-PT Subjective Patient Comments Patient Comments Pt states that his back didn't hurt nearly as bad over the weekend. He feels that the exercises help stretch it (his back) out. PT-OP-G Mobility & Gait Start: 04/30/21 12:12 Freq: Status: Active Protocol: Document 05/01/21 10:30 MB (Rec: 05/01/21 15:40 MB [id number]) OP Gait Assessment Comments Gait Comments Gait barefoot: decreased pelvic movement B, walks stiffer through the right leg and pt states that his right ball of foot and toes are starting to bother him as far as paresthesias. Decreased arm swing with gait. PT-OP-J Posture/Palpation/Skin Start: 04/30/21 12:12 Freq: Status: Active Protocol: Document 05/01/21 10:30 MB (Rec: 05/01/21 15:40 MB [id number]) Posture Evaluation Comments Posture Comments Standing posture in bare feet: forward head, rounded shoulders, decreased overall muscle mass and increased abdominal soft tissue, Dowager 's hump, left scapula higher than the right and right iliac crest higher than the left. PT-OP-K Range of Motion Start: 04/30/21 12:12 Freq: Status: Active Protocol: Document 05/01/21 10:30 MB (Rec: 05/01/21 15:40 MB [id number]) Hip Goniometric Range of Motion Hip ROM Limitations Comments B SLR limited with grossly 40 deg B and more compensatory movement with left testing PT-OP-M Strength Start: 04/30/21 12:12 Freq: Status: Active Protocol: Document 05/01/21 10:30 MB (Rec: 05/01/21 15:40 MB [id number]) Hip Strength Hip Manual Muscle Testing Bilateral Flexion (L2) 5 Normal Abduction 5 Normal Adduction 5 Normal Knee Strength Knee Manual Muscle Testing Bilateral Flexion (S2) 5 Normal Extension (L3) 5 Normal Ankle/Foot Strength Ankle and Foot Manual Muscle Testing Bilateral Dorsiflexion (L4) 5 Normal Inversion 5 Normal Eversion (S1) 5 Normal Toe Strength Toe Manual Muscle Testing Left Great Toe Extension 4 Good Right Great Toe Extension 4 Good PT-OP-Q Treatments Start: 04/30/21 12:12 Freq: Status: Active Protocol: Document 05/20/21 12:14 MB (Rec: 05/20/21 12:36 MB [id number]) Therapeutic Exercises Sitting Exercises Core progression Sitting Exercise Name Abdominal drawing in, knee rocking, HS, mini march, bridge, knee fall out Side bilateral Comments B, core engaged first, 10 reps all Manual Therapy Treatment Other Other Manual Treatments Pt kneeling on wedge and leaning over plinth: STM B thoracolumbar paraspinals, QL, TFL and hip rotators PT-OP-T Assessment and Plan Start: 04/30/21 12:12 Freq: Status: Active Protocol: Document 05/20/21 12:14 MB (Rec: 05/20/21 12:36 MB [id number]) Physical Therapy Assessment Rehab Potential Rehabilitation Potential Fair Evaluation Complexity Number of Personal Factors/Comorbidities 3 or More Number of Body Systems Impaired 3 Clinical Presentation at Evaluation Evolving Impairments Impairments Activity Tolerance,Gait,Pain, Posture,ROM,Sensation,Soft Tissue Mobility,Strength Other Impairments Personal factors include 2 hour commute by car 4-5x/wk, working 55 hours a week, ongoing nicotine use, not compliant with HEP as previously provided by this PT . Body systems affected include musculoskeletal, neuromuscular, metabolic and neurological. Pt reports right greater than left toe paresthesias and he has a history of DM and right sciatica with lumbar changes. His clinical presentation is evolving to unstable. Other Concerns Fall Risk Yes Goals 3 Undercutter Goal (LTG) Pt will perform WNLs on a standardized balance test to decrease fall risk by 07/01/21. LTG Duration 8 weeks 2 Undercutter Goal (LTG) Pt will be compliant with progressive HEP including pelvic realignment, flexibility, core and LE strengthening, balance and body mechanics to decrease pain and improve strength by 07/01/21. LTG Duration 8 weeks 1 Senior Care Goal (LTG) Pt will report a 75% improvement in back and leg pain to improve quality of life by 07/01/21. LTG Duration 8 weeks Assessment Summary Assessment Initiated core engagement today and pt will con't to work on at home. Overall, pt does not have a lot of time to do exercises at home and his daily routine of 1 hour car ride 2x/day will con't for the next three years. PT will not be able to make any change in this. PT course may be shorter d/t will be able to maximize education, ther-ex and provide manual intervention as pt is in PT. PT ed pt that PT cannot just continue for manual work, as this is not skilled service towards goals. Pt verbalizes understanding. Long-term, recommend massage therapy after d/c PT. Physical Therapy Plan Frequency and Duration Frequency of Treatment 2x/Week Duration of Treatment 8 weeks Plan of Care Start Date 05/01/21 Plan of Care End Date 07/01/21 Therapeutic Interventions Therapeutic Interventions Balance Training,Canalithic Repositioning,Gait Training, Home Exercise Program,Joint Mobilizations,Manual Therapy, Neuromuscular Re-education, Patient/Caregiver Education, Self-Care/Home Management,Soft Tissue Mobilization,Taping, Therapeutic Activities, Therapeutic Exercises Modalities Cold Pack/Ice Massage,Hot Packs Other Referrals/Consults Referrals/Consults Recommended Pain specialist referral Next Visit Focus/Plan Next Note Type Treatment Note Next Visit Plan Review exercises as needed and progress as able including thoracic mobility exercise/ pect stretch, manual work
--- NOTE | 2021-05-23 12:56 | PT.OTN ---
Current Diagnoses Lumbago with sciatica, right side (05/23/21) Lumbago with sciatica, left side (05/23/21) Physical Therapy Treatment Note PT-OP-A Visit Information Start: 04/30/21 12:12 Freq: Status: Active Protocol: Document 05/23/21 12:13 MB (Rec: 05/23/21 12:56 MB [id number]) Out-Patient Physical Therapy Visit Information Visit Information Visit Type Treatment Note Visit Note [facility], self-pay Visit Start Time 12:13 Visit Stop Time 12:54 Total Visit Minutes 41 Visit Number 5 PT-OP-B Current Condition Start: 04/30/21 12:12 Freq: Status: Active Protocol: Document 05/01/21 10:30 MB (Rec: 05/01/21 10:50 MB [id number]) Current Condition History of Current Condition Onset Date Progressive Current Complaints LB and posterior leg pain returning History of Current Condition Pt returns with recurrence of back pain after lifting ceiling fan up on 5th wheel over the weekend. He had PT the end of last year and his pain had gotten better. He has not been performing exercises . The pain has progressively returned. He con't to have the most LB and B posterior leg pain when reaching overhead. 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 He has fallen a couple of times. The steps going up to the RV are different than regular steps. Pt con't to smoke 3-4 cigarettes a day and is vaping more. 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 MRI 05/24/2020 reveals many changes including multilevel DDD, stenosis, L5 nerve root compression with deviation of right S1 nerve root, lateral recess at L5-S1 Treatment Goals Patient/Caregiver Goals To decrease pain PT-OP-C Subjective Start: 04/30/21 12:12 Freq: Status: Active Protocol: Document 05/23/21 12:13 MB (Rec: 05/23/21 12:56 MB [id number]) OP-PT Subjective Patient Comments Patient Comments Pt has had a busy week. He has worked 45 hours already this week. He sees Dr. Jensen after this treatment to check on his DM. PT-OP-G Mobility & Gait Start: 04/30/21 12:12 Freq: Status: Active Protocol: Document 05/01/21 10:30 MB (Rec: 05/01/21 15:40 MB [id number]) OP Gait Assessment Comments Gait Comments Gait barefoot: decreased pelvic movement B, walks stiffer through the right leg and pt states that his right ball of foot and toes are starting to bother him as far as paresthesias. Decreased arm swing with gait. PT-OP-J Posture/Palpation/Skin Start: 04/30/21 12:12 Freq: Status: Active Protocol: Document 05/01/21 10:30 MB (Rec: 05/01/21 15:40 MB [id number]) Posture Evaluation Comments Posture Comments Standing posture in bare feet: forward head, rounded shoulders, decreased overall muscle mass and increased abdominal soft tissue, Dowager 's hump, left scapula higher than the right and right iliac crest higher than the left. PT-OP-K Range of Motion Start: 04/30/21 12:12 Freq: Status: Active Protocol: Document 05/01/21 10:30 MB (Rec: 05/01/21 15:40 MB [id number]) Hip Goniometric Range of Motion Hip ROM Limitations Comments B SLR limited with grossly 40 deg B and more compensatory movement with left testing PT-OP-M Strength Start: 04/30/21 12:12 Freq: Status: Active Protocol: Document 05/01/21 10:30 MB (Rec: 05/01/21 15:40 MB [id number]) Hip Strength Hip Manual Muscle Testing Bilateral Flexion (L2) 5 Normal Abduction 5 Normal Adduction 5 Normal Knee Strength Knee Manual Muscle Testing Bilateral Flexion (S2) 5 Normal Extension (L3) 5 Normal Ankle/Foot Strength Ankle and Foot Manual Muscle Testing Bilateral Dorsiflexion (L4) 5 Normal Inversion 5 Normal Eversion (S1) 5 Normal Toe Strength Toe Manual Muscle Testing Left Great Toe Extension 4 Good Right Great Toe Extension 4 Good PT-OP-Q Treatments Start: 04/30/21 12:12 Freq: Status: Active Protocol: Document 05/23/21 12:13 MB (Rec: 05/23/21 12:56 MB [id number]) Manual Therapy Treatment Other Other Manual Treatments STM and positional release B hip flexor with pt in supine; B side lying: mobilization QL and thoraco lumbar paraspinals with pt performing coordinated breathing, STM B TFL and glutes, more tension on the right PT-OP-T Assessment and Plan Start: 04/30/21 12:12 Freq: Status: Active Protocol: Document 05/23/21 12:13 MB (Rec: 05/23/21 12:56 MB [id number]) Physical Therapy Assessment Rehab Potential Rehabilitation Potential Fair Evaluation Complexity Number of Personal Factors/Comorbidities 3 or More Number of Body Systems Impaired 3 Clinical Presentation at Evaluation Evolving Impairments Impairments Activity Tolerance,Gait,Pain, Posture,ROM,Sensation,Soft Tissue Mobility,Strength Other Impairments Personal factors include 2 hour commute by car 4-5x/wk, working 55 hours a week, ongoing nicotine use, not compliant with HEP as previously provided by this PT . Body systems affected include musculoskeletal, neuromuscular, metabolic and neurological. Pt reports right greater than left toe paresthesias and he has a history of DM and right sciatica with lumbar changes. His clinical presentation is evolving to unstable. Other Concerns Fall Risk Yes Goals 3 Mcfp Goal (LTG) Pt will perform WNLs on a standardized balance test to decrease fall risk by 07/01/21. LTG Duration 8 weeks 2 Medical Affairs Manager Goal (LTG) Pt will be compliant with progressive HEP including pelvic realignment, flexibility, core and LE strengthening, balance and body mechanics to decrease pain and improve strength by 07/01/21. LTG Duration 8 weeks 1 Mcfp Goal (LTG) Pt will report a 75% improvement in back and leg pain to improve quality of life by 07/01/21. 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 Con't per plan below. Anticipate 4-5 more treatments . Physical Therapy Plan Frequency and Duration Frequency of Treatment 2x/Week Duration of Treatment 8 weeks Plan of Care Start Date 05/01/21 Plan of Care End Date 07/01/21 Therapeutic Interventions Therapeutic Interventions Balance Training,Canalithic Repositioning,Gait Training, Home Exercise Program,Joint Mobilizations,Manual Therapy, Neuromuscular Re-education, Patient/Caregiver Education, Self-Care/Home Management,Soft Tissue Mobilization,Taping, Therapeutic Activities, Therapeutic Exercises Modalities Cold Pack/Ice Massage,Hot Packs Other Referrals/Consults Referrals/Consults Recommended Pain specialist referral Next Visit Focus/Plan Next Note Type Treatment Note Next Visit Plan Review exercises as needed and progress as able including thoracic mobility exercise/ pect stretch, clam with band in hooklying or sitting, quad and ankle strengthening in sitting, mini wall squat, manual work in side lying
--- NOTE | 2021-05-26 12:56 | PT.OTN ---
Current Diagnoses Lumbago with sciatica, right side (05/26/21) Lumbago with sciatica, left side (05/26/21) Physical Therapy Treatment Note PT-OP-A Visit Information Start: 04/30/21 12:12 Freq: Status: Active Protocol: Document 05/26/21 12:15 MB (Rec: 05/26/21 12:24 MB [id number]) Out-Patient Physical Therapy Visit Information Visit Information Visit Type Treatment Note Visit Note [facility], self-pay Visit Start Time 12:15 Visit Stop Time 12:53 Total Visit Minutes 38 Visit Number 6 PT-OP-B Current Condition Start: 04/30/21 12:12 Freq: Status: Active Protocol: Document 05/01/21 10:30 MB (Rec: 05/01/21 10:50 MB [id number]) Current Condition History of Current Condition Onset Date Progressive Current Complaints LB and posterior leg pain returning History of Current Condition Pt returns with recurrence of back pain after lifting ceiling fan up on 5th wheel over the weekend. He had PT the end of last year and his pain had gotten better. He has not been performing exercises . The pain has progressively returned. He con't to have the most LB and B posterior leg pain when reaching overhead. 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 He has fallen a couple of times. The steps going up to the RV are different than regular steps. Pt con't to smoke 3-4 cigarettes a day and is vaping more. 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 MRI 05/24/2020 reveals many changes including multilevel DDD, stenosis, L5 nerve root compression with deviation of right S1 nerve root, lateral recess at L5-S1 Treatment Goals Patient/Caregiver Goals To decrease pain PT-OP-C Subjective Start: 04/30/21 12:12 Freq: Status: Active Protocol: Document 05/26/21 12:15 MB (Rec: 05/26/21 12:24 MB [id number]) OP-PT Subjective Patient Comments Patient Comments Pt reports that after last treatment, he had spasming in his low back for the rest of the day. PT-OP-G Mobility & Gait Start: 04/30/21 12:12 Freq: Status: Active Protocol: Document 05/01/21 10:30 MB (Rec: 05/01/21 15:40 MB [id number]) OP Gait Assessment Comments Gait Comments Gait barefoot: decreased pelvic movement B, walks stiffer through the right leg and pt states that his right ball of foot and toes are starting to bother him as far as paresthesias. Decreased arm swing with gait. PT-OP-J Posture/Palpation/Skin Start: 04/30/21 12:12 Freq: Status: Active Protocol: Document 05/01/21 10:30 MB (Rec: 05/01/21 15:40 MB [id number]) Posture Evaluation Comments Posture Comments Standing posture in bare feet: forward head, rounded shoulders, decreased overall muscle mass and increased abdominal soft tissue, Dowager 's hump, left scapula higher than the right and right iliac crest higher than the left. PT-OP-K Range of Motion Start: 04/30/21 12:12 Freq: Status: Active Protocol: Document 05/01/21 10:30 MB (Rec: 05/01/21 15:40 MB [id number]) Hip Goniometric Range of Motion Hip ROM Limitations Comments B SLR limited with grossly 40 deg B and more compensatory movement with left testing PT-OP-M Strength Start: 04/30/21 12:12 Freq: Status: Active Protocol: Document 05/01/21 10:30 MB (Rec: 05/01/21 15:40 MB [id number]) Hip Strength Hip Manual Muscle Testing Bilateral Flexion (L2) 5 Normal Abduction 5 Normal Adduction 5 Normal Knee Strength Knee Manual Muscle Testing Bilateral Flexion (S2) 5 Normal Extension (L3) 5 Normal Ankle/Foot Strength Ankle and Foot Manual Muscle Testing Bilateral Dorsiflexion (L4) 5 Normal Inversion 5 Normal Eversion (S1) 5 Normal Toe Strength Toe Manual Muscle Testing Left Great Toe Extension 4 Good Right Great Toe Extension 4 Good PT-OP-Q Treatments Start: 04/30/21 12:12 Freq: Status: Active Protocol: Document 05/26/21 12:15 MB (Rec: 05/26/21 12:24 MB [id number]) Manual Therapy Treatment Other Other Manual Treatments Pt kneeling on wedge and leaning over plinth: STM B thoracolumbar paraspinals, QL, TFL and hip rotators PT-OP-T Assessment and Plan Start: 04/30/21 12:12 Freq: Status: Active Protocol: Document 05/26/21 12:15 MB (Rec: 05/26/21 12:24 MB [id number]) Physical Therapy Assessment Rehab Potential Rehabilitation Potential Fair Evaluation Complexity Number of Personal Factors/Comorbidities 3 or More Number of Body Systems Impaired 3 Clinical Presentation at Evaluation Evolving Impairments Impairments Activity Tolerance,Gait,Pain, Posture,ROM,Sensation,Soft Tissue Mobility,Strength Other Impairments Personal factors include 2 hour commute by car 4-5x/wk, working 55 hours a week, ongoing nicotine use, not compliant with HEP as previously provided by this PT . Body systems affected include musculoskeletal, neuromuscular, metabolic and neurological. Pt reports right greater than left toe paresthesias and he has a history of DM and right sciatica with lumbar changes. His clinical presentation is evolving to unstable. Other Concerns Fall Risk Yes Goals 3 Fdc Goal (LTG) Pt will perform WNLs on a standardized balance test to decrease fall risk by 07/01/21. LTG Duration 8 weeks 2 Fdc Goal (LTG) Pt will be compliant with progressive HEP including pelvic realignment, flexibility, core and LE strengthening, balance and body mechanics to decrease pain and improve strength by 07/01/21. LTG Duration 8 weeks 1 Fdc Goal (LTG) Pt will report a 75% improvement in back and leg pain to improve quality of life by 07/01/21. 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 Progress exercises next treatment date. Physical Therapy Plan Frequency and Duration Frequency of Treatment 2x/Week Duration of Treatment 8 weeks Plan of Care Start Date 05/01/21 Plan of Care End Date 07/01/21 Therapeutic Interventions Therapeutic Interventions Balance Training,Canalithic Repositioning,Gait Training, Home Exercise Program,Joint Mobilizations,Manual Therapy, Neuromuscular Re-education, Patient/Caregiver Education, Self-Care/Home Management,Soft Tissue Mobilization,Taping, Therapeutic Activities, Therapeutic Exercises Modalities Cold Pack/Ice Massage,Hot Packs Other Referrals/Consults Referrals/Consults Recommended Pain specialist referral Next Visit Focus/Plan Next Note Type Treatment Note Next Visit Plan Review exercises as needed and progress as able including thoracic mobility exercise/ pect stretch, clam with band in hooklying or sitting, quad and ankle strengthening in sitting, mini wall squat, ongoing manual work
--- NOTE | 2021-05-29 13:08 | PT.OTN ---
Current Diagnoses Lumbago with sciatica, right side (05/29/21) Lumbago with sciatica, left side (05/29/21) Physical Therapy Treatment Note PT-OP-A Visit Information Start: 04/30/21 12:12 Freq: Status: Active Protocol: Document 05/29/21 12:19 MB (Rec: 05/29/21 13:07 MB [id number]) Out-Patient Physical Therapy Visit Information Visit Information Visit Type Treatment Note Visit Note [facility], self-pay Visit Start Time 12:19 Visit Stop Time 13:00 Total Visit Minutes 41 Visit Number 7 PT-OP-B Current Condition Start: 04/30/21 12:12 Freq: Status: Active Protocol: Document 05/01/21 10:30 MB (Rec: 05/01/21 10:50 MB [id number]) Current Condition History of Current Condition Onset Date Progressive Current Complaints LB and posterior leg pain returning History of Current Condition Pt returns with recurrence of back pain after lifting ceiling fan up on 5th wheel over the weekend. He had PT the end of last year and his pain had gotten better. He has not been performing exercises . The pain has progressively returned. He con't to have the most LB and B posterior leg pain when reaching overhead. 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 He has fallen a couple of times. The steps going up to the RV are different than regular steps. Pt con't to smoke 3-4 cigarettes a day and is vaping more. 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 MRI 05/24/2020 reveals many changes including multilevel DDD, stenosis, L5 nerve root compression with deviation of right S1 nerve root, lateral recess at L5-S1 Treatment Goals Patient/Caregiver Goals To decrease pain PT-OP-C Subjective Start: 04/30/21 12:12 Freq: Status: Active Protocol: Document 05/29/21 12:19 MB (Rec: 05/29/21 13:07 MB [id number]) OP-PT Subjective Patient Comments Patient Comments Pt has not been getting many exercises done this week. He has been getting up, going to work, coming home from work and going to bed. PT-OP-G Mobility & Gait Start: 04/30/21 12:12 Freq: Status: Active Protocol: Document 05/01/21 10:30 MB (Rec: 05/01/21 15:40 MB [id number]) OP Gait Assessment Comments Gait Comments Gait barefoot: decreased pelvic movement B, walks stiffer through the right leg and pt states that his right ball of foot and toes are starting to bother him as far as paresthesias. Decreased arm swing with gait. PT-OP-J Posture/Palpation/Skin Start: 04/30/21 12:12 Freq: Status: Active Protocol: Document 05/01/21 10:30 MB (Rec: 05/01/21 15:40 MB [id number]) Posture Evaluation Comments Posture Comments Standing posture in bare feet: forward head, rounded shoulders, decreased overall muscle mass and increased abdominal soft tissue, Dowager 's hump, left scapula higher than the right and right iliac crest higher than the left. PT-OP-K Range of Motion Start: 04/30/21 12:12 Freq: Status: Active Protocol: Document 05/01/21 10:30 MB (Rec: 05/01/21 15:40 MB [id number]) Hip Goniometric Range of Motion Hip ROM Limitations Comments B SLR limited with grossly 40 deg B and more compensatory movement with left testing PT-OP-M Strength Start: 04/30/21 12:12 Freq: Status: Active Protocol: Document 05/01/21 10:30 MB (Rec: 05/01/21 15:40 MB [id number]) Hip Strength Hip Manual Muscle Testing Bilateral Flexion (L2) 5 Normal Abduction 5 Normal Adduction 5 Normal Knee Strength Knee Manual Muscle Testing Bilateral Flexion (S2) 5 Normal Extension (L3) 5 Normal Ankle/Foot Strength Ankle and Foot Manual Muscle Testing Bilateral Dorsiflexion (L4) 5 Normal Inversion 5 Normal Eversion (S1) 5 Normal Toe Strength Toe Manual Muscle Testing Left Great Toe Extension 4 Good Right Great Toe Extension 4 Good PT-OP-Q Treatments Start: 04/30/21 12:12 Freq: Status: Active Protocol: Document 05/29/21 12:19 MB (Rec: 05/29/21 13:07 MB [id number]) Therapeutic Exercises Supine Exercises Pect stretch Side bilateral Comments Arms up over head and to sides for w Sitting Exercises Thoracic rotation Side bilateral Comments Gentle rotation, breathing end -range Manual Therapy Treatment Other Other Manual Treatments Pt kneeling on wedge and leaning over plinth: STM B thoracolumbar paraspinals, QL, TFL and hip rotators. More tension thoracic spine compared to other areas today. PT-OP-T Assessment and Plan Start: 04/30/21 12:12 Freq: Status: Active Protocol: Document 05/29/21 12:19 MB (Rec: 05/29/21 13:07 MB [id number]) Physical Therapy Assessment Rehab Potential Rehabilitation Potential Fair Evaluation Complexity Number of Personal Factors/Comorbidities 3 or More Number of Body Systems Impaired 3 Clinical Presentation at Evaluation Evolving Impairments Impairments Activity Tolerance,Gait,Pain, Posture,ROM,Sensation,Soft Tissue Mobility,Strength Other Impairments Personal factors include 2 hour commute by car 4-5x/wk, working 55 hours a week, ongoing nicotine use, not compliant with HEP as previously provided by this PT . Body systems affected include musculoskeletal, neuromuscular, metabolic and neurological. Pt reports right greater than left toe paresthesias and he has a history of DM and right sciatica with lumbar changes. His clinical presentation is evolving to unstable. 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 LTG Duration 8 weeks 2 Jail Goal (LTG) Pt will be compliant with progressive HEP including pelvic realignment, flexibility, core and LE strengthening, balance and body mechanics to decrease pain and improve strength by 07/01/21. 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 LTG Duration 8 weeks Assessment Summary Assessment Added to flexibility exercises today and encouraged pt to perform them. Ongoing manual work today and pt is feeling better with manual work when lying over plinth. Physical Therapy Plan Frequency and Duration Frequency of Treatment 2x/Week Duration of Treatment 8 weeks Plan of Care Start Date 05/01/21 Plan of Care End Date 07/01/21 Therapeutic Interventions Therapeutic Interventions Balance Training,Canalithic Repositioning,Gait Training, Home Exercise Program,Joint Mobilizations,Manual Therapy, Neuromuscular Re-education, Patient/Caregiver Education, Self-Care/Home Management,Soft Tissue Mobilization,Taping, Therapeutic Activities, Therapeutic Exercises Modalities Cold Pack/Ice Massage,Hot Packs Other Referrals/Consults Referrals/Consults Recommended Pain specialist referral Next Visit Focus/Plan Next Note Type Treatment Note Next Visit Plan Review exercises as needed and progress as able including clam with band in hooklying or sitting, quad and ankle strengthening in sitting, mini wall squat, ongoing manual work
--- NOTE | 2021-06-06 13:49 | PT.OTN ---
Current Diagnoses Lumbago with sciatica, right side (06/06/21) Lumbago with sciatica, left side (06/06/21) Physical Therapy Treatment Note PT-OP-A Visit Information Start: 04/30/21 12:12 Freq: Status: Active Protocol: Document 06/06/21 13:01 MB (Rec: 06/06/21 13:24 MB [id number]) Out-Patient Physical Therapy Visit Information Visit Information Visit Type Treatment Note Visit Note [facility], self-pay Visit Start Time 13:01 Visit Stop Time 13:45 Total Visit Minutes 44 Visit Number 8 PT-OP-B Current Condition Start: 04/30/21 12:12 Freq: Status: Active Protocol: Document 05/01/21 10:30 MB (Rec: 05/01/21 10:50 MB [id number]) Current Condition History of Current Condition Onset Date Progressive Current Complaints LB and posterior leg pain returning History of Current Condition Pt returns with recurrence of back pain after lifting ceiling fan up on 5th wheel over the weekend. He had PT the end of last year and his pain had gotten better. He has not been performing exercises . The pain has progressively returned. He con't to have the most LB and B posterior leg pain when reaching overhead. 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 He has fallen a couple of times. The steps going up to the RV are different than regular steps. Pt con't to smoke 3-4 cigarettes a day and is vaping more. 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 MRI 05/24/2020 reveals many changes including multilevel DDD, stenosis, L5 nerve root compression with deviation of right S1 nerve root, lateral recess at L5-S1 Treatment Goals Patient/Caregiver Goals To decrease pain PT-OP-C Subjective Start: 04/30/21 12:12 Freq: Status: Active Protocol: Document 06/06/21 13:01 MB (Rec: 06/06/21 13:24 MB [id number]) OP-PT Subjective Patient Comments Patient Comments Pt cancelled appointment earlier in the week because he had an appointment about his left wrist. He was told he has tendinitis and he got an injection. He will get therapy for. it. PT-OP-G Mobility & Gait Start: 04/30/21 12:12 Freq: Status: Active Protocol: Document 05/01/21 10:30 MB (Rec: 05/01/21 15:40 MB [id number]) OP Gait Assessment Comments Gait Comments Gait barefoot: decreased pelvic movement B, walks stiffer through the right leg and pt states that his right ball of foot and toes are starting to bother him as far as paresthesias. Decreased arm swing with gait. PT-OP-J Posture/Palpation/Skin Start: 04/30/21 12:12 Freq: Status: Active Protocol: Document 05/01/21 10:30 MB (Rec: 05/01/21 15:40 MB [id number]) Posture Evaluation Comments Posture Comments Standing posture in bare feet: forward head, rounded shoulders, decreased overall muscle mass and increased abdominal soft tissue, Dowager 's hump, left scapula higher than the right and right iliac crest higher than the left. PT-OP-K Range of Motion Start: 04/30/21 12:12 Freq: Status: Active Protocol: Document 05/01/21 10:30 MB (Rec: 05/01/21 15:40 MB [id number]) Hip Goniometric Range of Motion Hip ROM Limitations Comments B SLR limited with grossly 40 deg B and more compensatory movement with left testing PT-OP-M Strength Start: 04/30/21 12:12 Freq: Status: Active Protocol: Document 05/01/21 10:30 MB (Rec: 05/01/21 15:40 MB [id number]) Hip Strength Hip Manual Muscle Testing Bilateral Flexion (L2) 5 Normal Abduction 5 Normal Adduction 5 Normal Knee Strength Knee Manual Muscle Testing Bilateral Flexion (S2) 5 Normal Extension (L3) 5 Normal Ankle/Foot Strength Ankle and Foot Manual Muscle Testing Bilateral Dorsiflexion (L4) 5 Normal Inversion 5 Normal Eversion (S1) 5 Normal Toe Strength Toe Manual Muscle Testing Left Great Toe Extension 4 Good Right Great Toe Extension 4 Good PT-OP-Q Treatments Start: 04/30/21 12:12 Freq: Status: Active Protocol: Document 06/06/21 13:01 MB (Rec: 06/06/21 13:24 MB [id number]) Therapeutic Exercises Sitting Exercises Clam in sitting Side bilateral Resistance Level 2 band Comments 10 reps with cues to squeeze glutes first LAQ with AP and band Side bilateral Resistance Level 2 band Comments LAQ with resistance by band around ankles, AP x10 reps Eversion and DF with band around feet Side bilateral Resistance Level 2 band Comments 10 reps slowly, knees foward, DF first Manual Therapy Treatment Other Other Manual Treatments Pt kneeling on wedge and leaning over plinth: STM B thoracolumbar paraspinals, QL, TFL and hip rotators PT-OP-T Assessment and Plan Start: 04/30/21 12:12 Freq: Status: Active Protocol: Document 06/06/21 13:01 MB (Rec: 06/06/21 13:24 MB [id number]) Physical Therapy Assessment Rehab Potential Rehabilitation Potential Fair Evaluation Complexity Number of Personal Factors/Comorbidities 3 or More Number of Body Systems Impaired 3 Clinical Presentation at Evaluation Evolving Impairments Impairments Activity Tolerance,Gait,Pain, Posture,ROM,Sensation,Soft Tissue Mobility,Strength Other Impairments Personal factors include 2 hour commute by car 4-5x/wk, working 55 hours a week, ongoing nicotine use, not compliant with HEP as previously provided by this PT . Body systems affected include musculoskeletal, neuromuscular, metabolic and neurological. Pt reports right greater than left toe paresthesias and he has a history of DM and right sciatica with lumbar changes. His clinical presentation is evolving to unstable. 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 LTG Duration 8 weeks 2 [facility] Goal (LTG) Pt will be compliant with progressive HEP including pelvic realignment, flexibility, core and LE strengthening, balance and body mechanics to decrease pain and improve strength by 07/01/21. LTG Duration 8 weeks 1 [facility] Goal (LTG) Pt will report a 75% improvement in back and leg pain to improve quality of life by 07/01/21. LTG Duration 8 weeks Assessment Summary Assessment Progressed strength today and ongoing manual work. Anticipate 2 more PT treatments. Pt is feeling as good at this point in therapy as he did the end of last therapy course. Overall, his commute and sedentary lifestyle affect his back pain , prolonged postures at work, decreased strength, body habitus at abdomen and these are barriers to improving pain in the long-term. Physical Therapy Plan Frequency and Duration Frequency of Treatment 2x/Week Duration of Treatment 8 weeks Plan of Care Start Date 05/01/21 Plan of Care End Date 07/01/21 Therapeutic Interventions Therapeutic Interventions Balance Training,Canalithic Repositioning,Gait Training, Home Exercise Program,Joint Mobilizations,Manual Therapy, Neuromuscular Re-education, Patient/Caregiver Education, Self-Care/Home Management,Soft Tissue Mobilization,Taping, Therapeutic Activities, Therapeutic Exercises Modalities Cold Pack/Ice Massage,Hot Packs Other Referrals/Consults Referrals/Consults Recommended Pain specialist referral Next Visit Focus/Plan Next Note Type Treatment Note Next Visit Plan Review ex and manual work
--- NOTE | 2021-06-10 12:59 | PT.OTN ---
Current Diagnoses Lumbago with sciatica, right side (06/10/21) Lumbago with sciatica, left side (06/10/21) Physical Therapy Treatment Note PT-OP-A Visit Information Start: 04/30/21 12:12 Freq: Status: Active Protocol: Document 06/10/21 12:15 MB (Rec: 06/10/21 12:45 MB [id number]) Out-Patient Physical Therapy Visit Information Visit Information Visit Type Treatment Note Visit Note [facility], self-pay Visit Start Time 12:15 Visit Stop Time 12:58 Total Visit Minutes 43 Visit Number 9 PT-OP-B Current Condition Start: 04/30/21 12:12 Freq: Status: Active Protocol: Document 05/01/21 10:30 MB (Rec: 05/01/21 10:50 MB [id number]) Current Condition History of Current Condition Onset Date Progressive Current Complaints LB and posterior leg pain returning History of Current Condition Pt returns with recurrence of back pain after lifting ceiling fan up on 5th wheel over the weekend. He had PT the end of last year and his pain had gotten better. He has not been performing exercises . The pain has progressively returned. He con't to have the most LB and B posterior leg pain when reaching overhead. 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 He has fallen a couple of times. The steps going up to the RV are different than regular steps. Pt con't to smoke 3-4 cigarettes a day and is vaping more. 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 MRI 05/24/2020 reveals many changes including multilevel DDD, stenosis, L5 nerve root compression with deviation of right S1 nerve root, lateral recess at L5-S1 Treatment Goals Patient/Caregiver Goals To decrease pain PT-OP-C Subjective Start: 04/30/21 12:12 Freq: Status: Active Protocol: Document 06/10/21 12:15 MB (Rec: 06/10/21 12:45 MB [id number]) OP-PT Subjective Patient Comments Patient Comments Pt states that the bands ones seem to work the glutes and LB . PT-OP-G Mobility & Gait Start: 04/30/21 12:12 Freq: Status: Active Protocol: Document 05/01/21 10:30 MB (Rec: 05/01/21 15:40 MB [id number]) OP Gait Assessment Comments Gait Comments Gait barefoot: decreased pelvic movement B, walks stiffer through the right leg and pt states that his right ball of foot and toes are starting to bother him as far as paresthesias. Decreased arm swing with gait. PT-OP-J Posture/Palpation/Skin Start: 04/30/21 12:12 Freq: Status: Active Protocol: Document 05/01/21 10:30 MB (Rec: 05/01/21 15:40 MB [id number]) Posture Evaluation Comments Posture Comments Standing posture in bare feet: forward head, rounded shoulders, decreased overall muscle mass and increased abdominal soft tissue, Dowager 's hump, left scapula higher than the right and right iliac crest higher than the left. PT-OP-K Range of Motion Start: 04/30/21 12:12 Freq: Status: Active Protocol: Document 05/01/21 10:30 MB (Rec: 05/01/21 15:40 MB [id number]) Hip Goniometric Range of Motion Hip ROM Limitations Comments B SLR limited with grossly 40 deg B and more compensatory movement with left testing PT-OP-M Strength Start: 04/30/21 12:12 Freq: Status: Active Protocol: Document 05/01/21 10:30 MB (Rec: 05/01/21 15:40 MB [id number]) Hip Strength Hip Manual Muscle Testing Bilateral Flexion (L2) 5 Normal Abduction 5 Normal Adduction 5 Normal Knee Strength Knee Manual Muscle Testing Bilateral Flexion (S2) 5 Normal Extension (L3) 5 Normal Ankle/Foot Strength Ankle and Foot Manual Muscle Testing Bilateral Dorsiflexion (L4) 5 Normal Inversion 5 Normal Eversion (S1) 5 Normal Toe Strength Toe Manual Muscle Testing Left Great Toe Extension 4 Good Right Great Toe Extension 4 Good PT-OP-Q Treatments Start: 04/30/21 12:12 Freq: Status: Active Protocol: Document 06/10/21 12:15 MB (Rec: 06/10/21 12:45 MB [id number]) Therapeutic Exercises Supine Exercises Pect stretch Side bilateral Comments Arms up overhead, w [place] stretch with abdominal drawing in first Side bilateral Comments Pt keeps arms overhead to increase stretch Pelvic realignment exercises Side bilateral Comments 5 reps, 3 sec hold all exercises Sitting Exercises Thoracic rotation Side bilateral Comments Gentle rotation and breathing end-range Core progression Sitting Exercise Name Abdominal drawing in, knee fall out, rocking, HS, mini march, bridge Side bilateral Comments 5 reps and cues for form Hip rotator stretch Side bilateral Comments 30 sec Hamstring stretch, toes up Side bilateral Comments 20-30 sec Manual Therapy Treatment Other Other Manual Treatments Pt kneeling on wedge and leaning over plinth: STM B thoracolumbar paraspinals, QL, TFL and hip rotators PT-OP-T Assessment and Plan Start: 04/30/21 12:12 Freq: Status: Active Protocol: Document 06/10/21 12:15 MB (Rec: 06/10/21 12:45 MB [id number]) Physical Therapy Assessment Rehab Potential Rehabilitation Potential Fair Evaluation Complexity Number of Personal Factors/Comorbidities 3 or More Number of Body Systems Impaired 3 Clinical Presentation at Evaluation Evolving Impairments Impairments Activity Tolerance,Gait,Pain, Posture,ROM,Sensation,Soft Tissue Mobility,Strength Other Impairments Personal factors include 2 hour commute by car 4-5x/wk, working 55 hours a week, ongoing nicotine use, not compliant with HEP as previously provided by this PT . Body systems affected include musculoskeletal, neuromuscular, metabolic and neurological. Pt reports right greater than left toe paresthesias and he has a history of DM and right sciatica with lumbar changes. His clinical presentation is evolving to unstable. 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 LTG Duration 8 weeks 2 Intermediate Goal (LTG) Pt will be compliant with progressive HEP including pelvic realignment, flexibility, core and LE strengthening, balance and body mechanics to decrease pain and improve strength by 07/01/21. 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 LTG Duration 8 weeks Assessment Summary Assessment Exercise review today and manual work. Will prepare for d/c next treatment date. Physical Therapy Plan Frequency and Duration Frequency of Treatment 2x/Week Duration of Treatment 8 weeks Plan of Care Start Date 05/01/21 Plan of Care End Date 07/01/21 Therapeutic Interventions Therapeutic Interventions Balance Training,Canalithic Repositioning,Gait Training, Home Exercise Program,Joint Mobilizations,Manual Therapy, Neuromuscular Re-education, Patient/Caregiver Education, Self-Care/Home Management,Soft Tissue Mobilization,Taping, Therapeutic Activities, Therapeutic Exercises Modalities Cold Pack/Ice Massage,Hot Packs Other Referrals/Consults Referrals/Consults Recommended Pain specialist referral Next Visit Focus/Plan Next Note Type Discharge Summary Next Visit Plan Manual work and prepare for d/ c
--- NOTE | 2021-06-17 12:55 | PT.OTN ---
Current Diagnoses Lumbago with sciatica, right side (06/17/21) Lumbago with sciatica, left side (06/17/21) Physical Therapy Treatment Note PT-OP-A Visit Information Start: 04/30/21 12:12 Freq: Status: Active Protocol: Document 06/17/21 12:15 MB (Rec: 06/17/21 12:29 MB [id number]) Out-Patient Physical Therapy Visit Information Visit Information Visit Type Treatment Note Visit Note [facility], self-pay Visit Start Time 12:15 Visit Stop Time 12:55 Total Visit Minutes 40 Visit Number 10 PT-OP-B Current Condition Start: 04/30/21 12:12 Freq: Status: Active Protocol: Document 05/01/21 10:30 MB (Rec: 05/01/21 10:50 MB [id number]) Current Condition History of Current Condition Onset Date Progressive Current Complaints LB and posterior leg pain returning History of Current Condition Pt returns with recurrence of back pain after lifting ceiling fan up on 5th wheel over the weekend. He had PT the end of last year and his pain had gotten better. He has not been performing exercises . The pain has progressively returned. He con't to have the most LB and B posterior leg pain when reaching overhead. 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 He has fallen a couple of times. The steps going up to the RV are different than regular steps. Pt con't to smoke 3-4 cigarettes a day and is vaping more. 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 MRI 05/24/2020 reveals many changes including multilevel DDD, stenosis, L5 nerve root compression with deviation of right S1 nerve root, lateral recess at L5-S1 Treatment Goals Patient/Caregiver Goals To decrease pain PT-OP-C Subjective Start: 04/30/21 12:12 Freq: Status: Active Protocol: Document 06/17/21 12:15 MB (Rec: 06/17/21 12:29 MB [id number]) OP-PT Subjective Patient Comments Patient Comments Pt states that he is feeling pretty good. He is better. PT went well and he is ready for d/c. PT-OP-G Mobility & Gait Start: 04/30/21 12:12 Freq: Status: Active Protocol: Document 05/01/21 10:30 MB (Rec: 05/01/21 15:40 MB [id number]) OP Gait Assessment Comments Gait Comments Gait barefoot: decreased pelvic movement B, walks stiffer through the right leg and pt states that his right ball of foot and toes are starting to bother him as far as paresthesias. Decreased arm swing with gait. PT-OP-J Posture/Palpation/Skin Start: 04/30/21 12:12 Freq: Status: Active Protocol: Document 05/01/21 10:30 MB (Rec: 05/01/21 15:40 MB [id number]) Posture Evaluation Comments Posture Comments Standing posture in bare feet: forward head, rounded shoulders, decreased overall muscle mass and increased abdominal soft tissue, Dowager 's hump, left scapula higher than the right and right iliac crest higher than the left. PT-OP-K Range of Motion Start: 04/30/21 12:12 Freq: Status: Active Protocol: Document 05/01/21 10:30 MB (Rec: 05/01/21 15:40 MB [id number]) Hip Goniometric Range of Motion Hip ROM Limitations Comments B SLR limited with grossly 40 deg B and more compensatory movement with left testing PT-OP-M Strength Start: 04/30/21 12:12 Freq: Status: Active Protocol: Document 05/01/21 10:30 MB (Rec: 05/01/21 15:40 MB [id number]) Hip Strength Hip Manual Muscle Testing Bilateral Flexion (L2) 5 Normal Abduction 5 Normal Adduction 5 Normal Knee Strength Knee Manual Muscle Testing Bilateral Flexion (S2) 5 Normal Extension (L3) 5 Normal Ankle/Foot Strength Ankle and Foot Manual Muscle Testing Bilateral Dorsiflexion (L4) 5 Normal Inversion 5 Normal Eversion (S1) 5 Normal Toe Strength Toe Manual Muscle Testing Left Great Toe Extension 4 Good Right Great Toe Extension 4 Good PT-OP-Q Treatments Start: 04/30/21 12:12 Freq: Status: Active Protocol: Document 06/17/21 12:15 MB (Rec: 06/17/21 12:29 MB [id number]) Therapeutic Exercises Other Exercises Reviewed HEP Comments Verbally reviewed all exercises today, went through list, to prepare for d/ Manual Therapy Treatment Other Other Manual Treatments Pt kneeling on wedge and leaning over plinth: STM B thoracolumbar paraspinals, QL, TFL and hip rotators PT-OP-T Assessment and Plan Start: 04/30/21 12:12 Freq: Status: Active Protocol: Document 06/17/21 12:15 MB (Rec: 06/17/21 12:29 MB [id number]) Physical Therapy Assessment Goals 3 Fdc Goal (LTG) Pt will perform WNLs on a standardized balance test to decrease fall risk by 07/01/21. 06/17/21: Deferred testing for this as pt has enough exercises that he is mostly getting through and PT does not wish to add more that might decrease compliance LTG Duration 8 weeks 2 Fdc Goal (LTG) Pt will be compliant with progressive HEP including pelvic realignment, flexibility, core and LE strengthening, balance and body mechanics to decrease pain and improve strength by 07/01/21. 06/17/21: Pt is performing pelvic realignment exercises, racquet ball massage, Niles stretch, sitting stretches, thoracic rotation, band leg strengthening. Re-ed in pect stretch today LTG Duration Met 1 Armed Security Officer Goal (LTG) Pt will report a 75% improvement in back and leg pain to improve quality of life by 07/01/21. 06/17/21: Pt reports a 75% improvement in back and leg pain since starting PT LTG Duration Met Assessment Summary Assessment Pt has met PT goals and is ready for d/c. Overall, driving 1 hour twice a day up to 5x/wk and decreased activity at home are barriers to him improving fitness and pain. PT did provide exercises for him to con't and recommend massage therapy at d /c.
== END 2021-09-30 09:52 ==
LOC: PHYS 12:15
PROVIDERS: PCP Family Medicine; Referring Provider Family Medicine; Visit Provider Family Medicine
DX: M54.42 Lumbago with sciatica, left side (principal); M54.41 Lumbago with sciatica, right side
CPT/HCPCS: 97110; 97140; 97161; 97535

== ENCOUNTER → 2021-09-05 11:44 | Outpatient (CLI) | payer OTHER, SELFPAY ==
--- NOTE | 2021-09-05 11:45 | DI.MRI.S_ITS ---
PROCEDURE: MR LUMBAR SPINE WO CON INDICATIONS: back pain with radiculopathy TECHNIQUE: Noncontrast sagittal T1 spin echo and T2 fast echo, sagittal STIR, axial T1 and T2 fast spin echo through the lumbar spine. In cases with scoliosis, additional coronal T2 fast spin echo may be performed. COMPARISON: [facility], MR, MR LUMBAR SPINE WO CON, 05/24/2020, 11:04. [facility], CR, XR LUMBAR SPINE 2-3V, 04/26/2020, 10:00. FINDINGS: Image quality: Excellent. Alignment and Curvature: There is straightening of the normal lumbar lordosis. Minimal retrolisthesis is seen at L5-S1. Bone Marrow: Marrow is of normal overall signal. No acute vertebral body compression fractures. Spinal Cord: Conus medullaris terminates at the L1 level. Visualized cord demonstrates normal signal and size. Paraspinous Soft Tissues: No paravertebral masses. The distal aorta is ectatic at 2.8 cm, without ariella aneurysm. T12-L1: Normal appearance. L1-L2: Normal appearance. L2-L3: Normal appearance. L3-L4: No significant abnormality is seen. L4-L5: The disc height and disk signal are well-preserved. Mild disc bulge is seen, with a slight central disc protrusion. Mild facet joint hypertrophy is seen. There is [id number] right-sided and moderate left-sided neural narrowing seen. No significant central canal narrowing is seen. When comparison is made with the prior images, these findings are similar. L5-S1: Moderate loss of disc height is seen. Loss of disc signal is seen. At least moderate disc bulge is seen, with a central disc protrusion. Reactive marrow endplate changes are seen, which are hyperintense on T1-weighted and T2-weighted imaging and most consistent with fatty metaplasia (Modic type II changes). Moderate facet joint hypertrophy is seen. There is moderate to severe bilateral neural foraminal narrowing seen. There is a degree of compression seen upon the exiting nerve roots. Mild central canal narrowing is seen. Stable from the prior 2020 images. IMPRESSION: Stable lower lumbar spine degenerative changes are seen, which are worst at L5-S1. Dictated by: Edmund Mayorga M.D. on 09/05/2021 at 14:52 Approved by: Edmund Mayorga M.D. on 09/05/2021 at 14:55
== END ==
PROVIDERS: PCP Family Medicine; Referring Provider Family Medicine; Visit Provider Family Medicine
DX: M54.42 Lumbago with sciatica, left side (principal); M54.41 Lumbago with sciatica, right side; M47.816 Spondylosis without myelopathy or radiculopathy, lumbar region; M47.817 Spondylosis without myelopathy or radiculopathy, lumbosacral region; G89.29 Other chronic pain
CPT/HCPCS: 72148

== ENCOUNTER → 2021-09-06 09:17 | Outpatient (CLI) | payer OTHER, SELFPAY | PROVIDERS: PCP Family Medicine; Referring Provider Nurse Practitioner Family; Visit Provider Nurse Practitioner Family | DX: S59.919A Unspecified injury of unspecified forearm, initial encounter (principal) ==

== ENCOUNTER → 2021-11-20 12:24 | Outpatient (CLI) | payer OTHER, SELFPAY ==
[2021-11-20 13:30] LABS: Add Manual Diff / Slide Review NO; Basophils Absolute Auto 0 /uL (0-100); Basophils Percent Auto 0.6 % (0-2); Eosinophils Absolute Auto 100 /uL (0-450); Eosinophils Percent Auto 1.2 % (2-4); Hematocrit 52.8 % (41-53); Hemoglobin 18.1 g/dL (13.5-17.5); Lymphocytes Absolute Auto 1500 /uL (1100-4500); Lymphocytes Percent Auto 23.1 % (25-40); Mean Corpuscular HGB Conc 34.4 % (30-36); Mean Corpuscular Hemoglobin 31.8 PG (26-34); Mean Corpuscular Volume 92.6 fL (80-100); Monocytes Absolute Auto 800 /uL (0-900); Monocytes Percent Auto 12.2 % (3-14); Neutrophils Absolute Auto 4100 /uL (1500-7000); Neutrophils Percent Auto 62.9 % (50-75); Platelet Count 187 X10^3/uL (150-400); Red Cell Distribution Width 13.9 % (11.6-14.8); White Blood Cell Count 6.5 X10^3/uL (4.5-11.0)
[2021-11-20 13:38] LABS: Hemoglobin A1C% w Est Avg Glu 7.7 % (4.0-6.0)
[2021-11-20 13:57] LABS: Alanine Aminotransferase 17 IU/L (<50); Albumin 4.4 g/dL (3.5-5.0); Albumin Globulin Ratio 1.4 (1.0-2.8); Alkaline Phosphatase 80 U/L (38-126); Aspartate Aminotransferase 24 IU/L (17-59); BUN Creatinine Ratio 22.9 (6-22); Bilirubin Total 0.7 mg/dL (0.2-1.3); Blood Urea Nitrogen 16 mg/dL (9-20); Calcium 8.9 mg/dL (8.4-10.2); Carbon Dioxide 28 mmol/L (22-32); Chloride 100 mmol/L (98-107); Cholesterol 205 mg/dL (140-199); Estimated Glomerular Filt Rate > 60.0 mL/min (>60); Globulin 3.2 g/dL (1.7-4.1); Glucose 159 mg/dL (80-110); HDL Cholesterol 40 mg/dL (40-60); HEMOLYSIS < 15 (0-50); LDL Cholesterol Calculated 134 mg/dL (<100); Potassium 3.9 mmol/L (3.4-5.1); Sodium 137 mmol/L (137-145); Total Protein 7.6 g/dL (6.3-8.2); Triglycerides 156 mg/dL (35-150)
== END ==
PROVIDERS: PCP Family Medicine; Referring Provider Family Medicine; Visit Provider Family Medicine
DX: E11.42 Type 2 diabetes mellitus with diabetic polyneuropathy (principal); E78.5 Hyperlipidemia, unspecified; I10 Essential (primary) hypertension
CPT/HCPCS: 36415; 80053; 80061; 83036; 85025

== ENCOUNTER → 2022-03-23 11:21 | Outpatient (CLI) | payer OTHER, SELFPAY | PROVIDERS: PCP Family Medicine; Referring Provider Family Medicine; Visit Provider Family Medicine | DX: E11.42 Type 2 diabetes mellitus with diabetic polyneuropathy (principal) | CPT/HCPCS: 36415; 83036 ==

== ENCOUNTER → 2022-09-29 12:07 | Outpatient (CLI) | payer OTHER, SELFPAY ==
[2022-09-29 12:55] LABS: Add Manual Diff / Slide Review NO; Basophils Absolute Auto 0 /uL (0-100); Basophils Percent Auto 0.7 % (0-2); Eosinophils Absolute Auto 100 /uL (0-450); Eosinophils Percent Auto 2.3 % (2-4); Hemoglobin 17.2 g/dL (13.5-17.5); Lymphocytes Absolute Auto 1300 /uL (1100-4500); Lymphocytes Percent Auto 26.3 % (25-40); Mean Corpuscular Hemoglobin 32.9 PG (26-34); Monocytes Absolute Auto 800 /uL (0-900); Monocytes Percent Auto 15.3 % (3-14); Neutrophils Absolute Auto 2800 /uL (1500-7000); Neutrophils Percent Auto 55.4 % (50-75); Platelet Count 168 X10^3/uL (150-400); Red Blood Cell Count 5.21 X10^6/uL (4.5-5.9); Red Cell Distribution Width 13.6 % (11.6-14.8)
[2022-09-29 13:18] LABS: Hemoglobin A1C% w Est Avg Glu 7.5 % (4.0-6.0)
[2022-09-29 13:44] LABS: Alanine Aminotransferase 16 IU/L (<50); Albumin 4.4 g/dL (3.5-5.0); Albumin Globulin Ratio 1.4 (1.0-2.8); Alkaline Phosphatase 79 U/L (38-126); Aspartate Aminotransferase 21 IU/L (17-59); Bilirubin Total 0.6 mg/dL (0.2-1.3); Blood Urea Nitrogen 18 mg/dL (9-20); Calcium 8.6 mg/dL (8.4-10.2); Carbon Dioxide 27 mmol/L (22-32); Chloride 98 mmol/L (98-107); Cholesterol 221 mg/dL (140-199); Estimated Glomerular Filt Rate > 60 mL/min (>60); Globulin 3.2 g/dL (1.7-4.1); Glucose 160 mg/dL (80-110); HDL Cholesterol 47 mg/dL (40-60); HEMOLYSIS 42 (0-50); LDL Cholesterol Calculated 122 mg/dL (<100); Potassium 4.2 mmol/L (3.4-5.1); Sodium 135 mmol/L (137-145); Total Protein 7.6 g/dL (6.3-8.2); Triglycerides 261 mg/dL (35-150)
[2022-09-29 14:03] LABS: TSH w/ Reflex to FT4 2.25 uIU/mL (0.47-4.68)
== END ==
PROVIDERS: PCP Family Medicine; Referring Provider Orthopaedic Surgery Orthopaedic Surgery of the Spine; Visit Provider Orthopaedic Surgery Orthopaedic Surgery of the Spine
DX: Z01.818 Encounter for other preprocedural examination (principal); Z01.812 Encounter for preprocedural laboratory examination; R73.9 Hyperglycemia, unspecified; E11.42 Type 2 diabetes mellitus with diabetic polyneuropathy; E78.5 Hyperlipidemia, unspecified; I10 Essential (primary) hypertension
CPT/HCPCS: 36415; 80053; 80061; 83036; 84443; 85025; 93005

== ENCOUNTER 2022-11-04 07:36 | Inpatient (IN) | payer OTHER, MEDICARE, SELFPAY ==
[2022-10-27 09:35] VITALS: BMI 25.1
[2022-11-04] VITALS (13 sets, daily range): BP systolic 89–171; BP diastolic 55–94; PULSE 58–84; RESP 10–18; TEMP 36.4–37.1; O2SAT 85–97; BMI 25.1
[2022-11-04 08:52] LABS: COVID19 -Nasal RAPID Negative (Negative)
[2022-11-04] MEDS: LACTATED RINGERS 1,000 ML 42 ML IV ×2 (08:59→13:08)
--- NOTE | 2022-11-04 10:05 | PM.PREOP ---
Pre-operative Note COVID-19 COVID-19 status: Negative Result date/Date tested (Pos, Neg/Pending): 11/03/22 Criteria for continued procedure: Expected advancement of disease process, Possibility delay results in more complex future surgery or treatment, Increased loss of function, Continuing or worsening of significant or severe pain, Deterioration of the patient's condition or overall health and Delay expected to result in less-positive ultimate med/surg outcome Interval Note History & Physical reviewed/Exam performed by Physician: Yes Changes to H&P: No
[2022-11-04] MEDS: CEFAZOLIN 2 GM/100 ML PREMIX 100 ML IV (10:30)
--- NOTE | 2022-11-04 10:57 | SUR.OPER ---
Prone on spine table, head in foam head support, padded chest and pelvic supports, gel pad at knees, lower legs supported by pillows; nipples, genitalia and toes free of pressure, arms secured on foam padded arm boards at <90 degrees abduction. Tape over blanket at thigh secured to table.
[2022-11-04] MEDS: BUPIVACAINE LIPOSOME 266 MG/20 ML VIAL INJ (11:06)
[2022-11-04] MEDS: BUPIVACAINE 0.25% (PF) 30 ML, EPINEPHrine 0.3 MG INJ (11:07)
--- NOTE | 2022-11-04 12:29 | DI.RAD.S_ITS ---
PROCEDURE: XR LUMBAR SPINE 2-3V INDICATIONS: L5-S1 TLIF TECHNIQUE: 2 intraoperative views of the lumbar spine were acquired. COMPARISON: [facility], , XR LUMBAR SPINE 2-3V, 04/26/2020, 10:00. FINDINGS: Intraoperative imaging is obtained during lumbosacral fusion hardware placement. IMPRESSION: Intraoperative imaging as above. Dictated by: Félix Hopkins M.D. on 11/04/2022 at 15:13 Transcribed by: RONDA on 11/04/2022 at 15:14 Approved by: Félix Hopkins M.D. on 11/04/2022 at 16:24
--- NOTE | 2022-11-04 12:32 | P.OP_ITS ---
Operative Date/Time/Diagnoses Date of procedure: 11/04/22 Time of procedure: 10:15 Pre-op diagnosis: 1. L5-S1 spinal stenosis 2. L5-S1 spondylosis with radiculopathy Post-op diagnosis: same Procedure & Clinicians Procedure: 1. L5-S1 Postero-lateral and posterior interbody fusion 2. L5-S1 interbody cage placement. 3. L5-S1 decompressive laminectomy with bilateral facetecomies 4.L5-S1 Posterior non-segmental instrumentation 5. [place] of bone marrow from iliac crest 6. Utilization of microsurgical technique and operating microscope Same procedure as scheduled: Yes Indications: Patient has been having chronic back pain and worsening lumbar radiculopathy. Patient failed multiple conservative management with worsening pain weakness and numbness in her lower extremity. Patient has been having difficulty performing activity of daily living. After discussing risks benefits of treatment options, patient elected proceed with surgery. Surgeon: Gali Rivera Marketing Development Representative: Shania Chaney Click Yes if Unassisted: No Anesthesia Type: General Operative Notes Closure Type: primary Specimen(s): none sent Prosthetic devices, grafts, tissues, transplants, or devices: Globus revolve screws, Rise cage Estimated Blood Loss (mL): 50 Procedure in detail: Patient was seen in the preoperative area. Risks and benefits of the surgery was discussed with the patient. Informed consent was obtained from the patient and placed in the chart. Surgical site was marked. Patient was taken to the operative room. General anesthesia was administered. Prophylactic antibiotic was given to the patient less than 30 min before the incision was made. Patient was placed into a prone position on the Ivan table. Patient's back was then prepped and draped in the sterile fashion. Time-out was performed at this time. Using AP and lateral C-arm imaging the interval between L5-S1 was identified and marked on patient's back. A 2 inch incision 2 in from midline was made on the right side first. The fascia was incised in line with skin incision. Globus MARS retractors was placed inside the incision and docked onto the L5 lamina. Using microsurgical technique and operating microscope, a L5 laminectomy and L5- S1 facetectomy was performed using a Kerrison rongeur. Patient was found have severe lateral recess and neural foramen stenosis which was fully decompressed after the laminectomy facetectomy. More than 75% of the facets were removed during the process of decompression rendering L5-S1 level grossly unstable and required a fusion procedure at the same time. The disc space at L5-S1 was identified. And a total diskectomy was performed at L4-5 level. The endplates were decorticated using a rasp and shaver. The total diskectomy and decortication was performed at L5-S1 level in order to to accomplish a L5-S1 fusion. The local bone from the laminectomy and facetectomy was saved for local bone grafting. After the total diskectomy and decortication was completed, Trifecta bone graft material was combined with local bone that was harvested earlier. At this time, a separate skin is incision was made over the iliac crest. A Jamshidi needle was inserted into the iliac crest through a separate skin incision. 5 cc of bone marrow aspiration was obtained through the separate skin incision using a Jamshidi needle from the iliac crest. The bone marrow aspiration was combined with local bone and the Trifecta bone grafting material. The bone grafting material was placed into the L5-S1 interbody space along with a expandable cage. The cage was expanded to its maximum height using the torque limiting screwdriver. At this time a mirror image incision was made on the left side. The fascia was incised in line with the skin incision. Globus MARS retractor was inserted and docked onto the L5-S1 posterolateral gutter. Using the power drill, posterior-lateral decortication was performed at L5-S1 level until bleeding cortical bone was identified. The remaining bone grafting material was placed into the L5-S1 posterior lateral gutter he order to accomplish posterolateral fusion at the L5-S1 level. Using the double C-arm technique, pedicle screws were placed into the L5-S1 pedicles bilaterally. This was done by placing the Jamshidi needle into the pe dicles, then placing the guidewires over the Jamshidi needle, and finally placing the cannulated screws over the guidewires bilaterally. After the pedicle screws were placed, 2 titanium rods was locked into the heads of the pedicle screws using locking caps and torque limiting screwdriver. After all the hardware was placed, and confirmed with AP and lateral C-arm imaging, the wound was then irrigated with sterile normal saline and packed with Ray-Yanick gauze for 3 min to accomplish hemostasis. After the gauze was removed the deep fascia was closed with #1 Vicryl suture. The subcutaneous layer was closed with 2-0 Vicryl. The skin was closed with skin gio. Patient tolerated the procedure well. There were no complications. Complications: none Post-operative Condition: stable Disposition: PACU Plan for aftercare: Admit to inpatient hospital
[2022-11-04] MEDS: ALBUTEROL 2.5 MG/3 ML NEB (ADULT) INH (12:45)
[2022-11-04] MEDS: hydrOXYzine 50 MG/ML INJ IM (13:22)
[2022-11-04] MEDS: OXYCODONE/ACETAMINOPHEN 5/325 TABLET 1 TAB PO (13:29)
[2022-11-04] MEDS: SODIUM CHLORIDE 0.9% 1,000 ML 100 ML IV (13:59)
[2022-11-04] MEDS: ACETAMINOPHEN 325 MG TABLET 650 MG PO (16:36)
--- NOTE | 2022-11-04 17:09 | PC.NURSE ---
pt sitting in chair. pt reports he feels better when he is standing up. pain 3. now on RA 95%
[2022-11-04] MEDS: CEFAZOLIN VIAL 1 GM in SODIUM CHLORIDE 0.9% 100 ML IV (17:54)
[2022-11-04] MEDS: OXYCODONE IR 5 MG TABLET 10 MG PO ×2 (18:00→22:20)
[2022-11-04] MEDS: hydrOXYzine pamoate 25 MG CAPSULE PO ×2 (18:19→22:20)
[2022-11-04] MEDS: SENNOSIDES 8.6 MG TABLET 17.2 MG PO (20:59)
[2022-11-04] MEDS: DOCUSATE 100 MG CAPSULE PO (20:59)
[2022-11-04] MEDS: GABAPENTIN 100 MG CAPSULE 700 MG PO (21:00)
[2022-11-05] VITALS: BP 158/73; PULSE 64; RESP 17; TEMP 37.1; O2SAT 93
[2022-11-05] MEDS: CEFAZOLIN VIAL 1 GM in SODIUM CHLORIDE 0.9% 100 ML IV (02:24)
[2022-11-05] MEDS: OXYCODONE IR 5 MG TABLET 10 MG PO ×2 (03:55→13:06)
[2022-11-05] MEDS: hydrOXYzine pamoate 25 MG CAPSULE PO ×2 (03:55→10:04)
[2022-11-05 04:00] VITALS: BP 149/87; PULSE 78; RESP 18; TEMP 36.5; O2SAT 95
--- NOTE | 2022-11-05 06:45 | PC.NURSE ---
Night Note-Patient able to doze intermittently, pain controlled with oxycodone and Vistaril. Ambulated in room and down yang, CMS intact, drsg CDI.
[2022-11-05 08:00] VITALS: BP 164/87; PULSE 74; RESP 18; TEMP 36.7; O2SAT 97
[2022-11-05] MEDS: PIOGLITAZONE 15 MG TABLET PO (08:50)
[2022-11-05 08:53] VITALS: PULSE 73
[2022-11-05] MEDS: LOSARTAN 50 MG TABLET PO (08:53)
[2022-11-05] MEDS: hydroCHLOROthiazide 25 MG TABLET 12.5 MG PO (08:55)
[2022-11-05] MEDS: DOCUSATE 100 MG CAPSULE PO (08:55)
[2022-11-05] MEDS: LORATADINE 10 MG TABLET PO (08:56)
[2022-11-05] MEDS: FLUTICASONE 120 SPRAY/16 GM SPRAY.SUSP NASAL (08:56)
[2022-11-05] MEDS: PRAVASTATIN 20 MG TABLET PO (08:56)
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
[2022-11-05] MEDS: ACETAMINOPHEN 325 MG TABLET 650 MG PO (10:05)
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
--- NOTE | 2022-11-05 12:00 | CM.DANOTE ---
DCP: Case received, EMR reviewed and met with patient. Introduced self and role. Was able to obtain information regarding patient's baseline activity status prior to hospitalization. DCP assessment completed with information currently available. Patient is a 67 year old male who admitted yesterday morning to the care of the hospitalist team. PCP: Dr. Jensen. Payer: confirmed: [facility]/Medicare A Patient came to the hospital via private vehicle for a surgical procedure. Patient had L5-S1 Postero-lateral and posterior interbody fusion. Patient has history of spinal stenosis. Met with patient in his room. He is alert and oriented, and was sitting up on the edge of the bed having breakfast. Confirmed that he is independent at his baseline, and resides here in [place] with spouse, Jw. He uses no DME at baseline, and is employed at [employer]. Patient was working with [employer], and was ambulating in the hallway. P: Patient has discharge orders for home today. 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 No: working on it History Provided By Patient,Medical Record Prior Living Arrangements RV Household Members spouse Type of transporation used prior to Drives own vehicle admit Independent with ADL's Yes Is patient alert and oriented? Yes Caregiver for Another No Barriers to Discharge No Discharge Plan Home Transportation Arrangement Spouse Referrals Initiated None needed Whiteboard Updated in Patient Room with Yes name and ext. # of Homicide Squad Lieutenant Review Status In Process Next Review Type Continued Stay Review Pre-Anesthesia Assessment Start: 10/27/22 09:35 Freq: Status: Complete Protocol: Document 10/27/22 09:35 CAB (Rec: 10/27/22 10:34 [facility] [id number]) Pre-Anesthesia Assessment Preferred Name Stephen Patient Information Reviewed Via Phone Assessment Assessment Completed With Patient Diagnostic Results BMP/CMP,CBC,EKG Comment Labs/EKG @ [facility] 09/29/22 Primary Care Provider Sandeep Jensen Seen Specialist in Last 12 Months Yes Specialist Seen Orthopedist Primary Language [place] Syrup Shed Supervisor Required No Height 5 ft 9 in Weight 170 lb Body Mass Index (BMI) 25.1 Hearing Ability Normal Visual Assist Glasses Dentition Type Teeth, Natural Present Barriers to Learning None Hx Anesthesia Reactions No Hx Family Anesthesia Reaction No Hx Malignant Hyperthermia No Hx Blood Transfusions No Anesthesia Review Requested No 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 Smoking Status Current some day smoker Tobacco type cigarettes Substance Use Type does not use Pain Present Pain Reported Musculoskeletal Symptoms Abnormal Gait,Back Pain, Radiating Pain into Limb History of Falling (Recent or History of No ) Patient is completely paralyzed or No completely immobile Mental Status Oriented to own ability Is patient on oxygen? No Does patient have BADILLO/SOB No Hx Sleep Apnea No Currently Taking a Beta Ben No Can You Climb a Flight of Stairs Without Yes SOB Hx Chest Pain No Hx SOB No Hx Syncope or Dizziness No Anti-Coagulant Therapy No Has a Part Maker No Cardiac Testing No Hx Pacemaker/ICD No Pacemaker Rep Required? No Cardiac Clearance Received Not Applicable Diet Type At Home Regular Dysphagia No Gastrointestinal Symptoms Constipation,Diarrhea,Reflux Chronic UTI No Bladder Pattern Urgency Urinary Catheter Present No Hx Urinary Self Catheterization No Diabetes Yes HgbA1C 7.5 Date 09/29/22 Hx Drug Resistant Organism No Presence of External or Internal Medical No Devices Have you had any close contact with No someone diagnosed with COVID-19? Received a COVID vaccine? Yes Received all doses? No Marital Status Lives With spouse Current Living Arrangements RV Support System Child/Children,Spouse Does the Patient Have Assistance After Yes Surgery Patient Discharge Plan Description Return Home Comment Pt advised 1-2 night length of stay per surgeon Feels Safe in Current Environment Yes Been Physically Hurt or Threatened By a No Person in Current Environment Do you have thoughts of harming yourself None or others? Are you currently considering suicide? No Do you have a plan to hurt yourself or No Plan others? Do You Have Any Spiritual Beliefs That No May Affect Your HC Choices? Do You Have Any Cultural Practices That No May Affect Your HC Choices? Comment Yobany Who Can We Speak to About Patient's Care Family, friends Identifying Code for Release of Patient Declines to issue Information Health Care Proxy/Next of Kin Parisa (daughter) Health Care Proxy Emergency Contact Name Jw () Emergency Contact Advance Directives? No Power of Bakery Clerk No PAC Instructions Durable medical equipment, Medications to take/avoid, Nasal antibiotic,No ETOH/ petroleum product on skin DOS, NPO,Post-op transportation,Pre -surgical wash,Sensory aids, Sturdy shoes/comfortable clothes,Do not bring valuables and remove jewelry
--- NOTE | 2022-11-05 13:20 | PC.NURSE ---
Discharge note: Iv d/c'd. Discharge paperwork signed. Education provided. Questions answered. Patient wheeled to private vehicle with family member at approximately 1310.
== END 2022-11-05 13:10 | disposition home or self-care (01) | DRG 455 ==
PROVIDERS: Admitting Provider Orthopaedic Surgery Orthopaedic Surgery of the Spine; PCP Family Medicine; Referring Provider Orthopaedic Surgery Orthopaedic Surgery of the Spine; Visit Provider Orthopaedic Surgery Orthopaedic Surgery of the Spine
PROC: 0SG30AJ Fusion of Lumbosacral Joint with Interbody Fusion Device, Posterior Approach, Anterior Column, Open Approach (ICD-10-PCS; principal; 2022-11-04 09:45)
DX: M48.07 Spinal stenosis, lumbosacral region (principal); M47.27 Other spondylosis with radiculopathy, lumbosacral region; I10 Essential (primary) hypertension; E11.9 Type 2 diabetes mellitus without complications; E78.5 Hyperlipidemia, unspecified; M10.9 Gout, unspecified; F17.200 Nicotine dependence, unspecified, uncomplicated; Z20.822 Contact with and (suspected) exposure to COVID-19; Z79.84 Long term (current) use of oral hypoglycemic drugs
CPT/HCPCS: 72100; 76000; 87635; 97162; 97165; 97535; C9803; C1713; C1831; C9290; J0171; J0690; J1100; J1170; J2250; J2405; J2704; J3010; J3410; J7613

== ENCOUNTER 2022-11-05 18:15 | Emergency (ER) | payer OTHER, SELFPAY ==
[2022-11-04 14:04] VITALS: BMI 25.1
[2022-11-05 18:41] VITALS: BP 129/84; PULSE 82; RESP 16; TEMP 37.5; O2SAT 98; BMI 25.1
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
== END 2022-11-05 20:28 | disposition home or self-care (01) ==
PROVIDERS: Emergency Provider Physician Assistant Medical; PCP Family Medicine
DX: G89.18 Other acute postprocedural pain (principal)
CPT/HCPCS: 99281

== ENCOUNTER → 2023-04-15 15:10 | Outpatient (CLI) | payer OTHER, SELFPAY ==
[2022-11-04 14:04] VITALS: BMI 25.1
[2023-04-15 15:48] LABS: Add Manual Diff / Slide Review NO; Basophils Absolute Auto 0 /uL (0-100); Basophils Percent Auto 0.7 % (0-2); Eosinophils Absolute Auto 100 /uL (0-450); Eosinophils Percent Auto 1.2 % (2-4); Hematocrit 48.2 % (41-53); Lymphocytes Absolute Auto 1700 /uL (1100-4500); Lymphocytes Percent Auto 31.5 % (25-40); Mean Corpuscular HGB Conc 35.2 % (30-36); Mean Corpuscular Hemoglobin 33.1 PG (26-34); Mean Corpuscular Volume 93.9 fL (80-100); Monocytes Absolute Auto 700 /uL (0-900); Monocytes Percent Auto 12.9 % (3-14); Neutrophils Absolute Auto 2900 /uL (1500-7000); Neutrophils Percent Auto 53.7 % (50-75); Platelet Count 190 X10^3/uL (150-400); Red Blood Cell Count 5.13 X10^6/uL (4.5-5.9); Red Cell Distribution Width 13.9 % (11.6-14.8); White Blood Cell Count 5.3 X10^3/uL (4.5-11.0)
[2023-04-15 16:51] LABS: Alanine Aminotransferase 15 IU/L (<50); Albumin 4.1 g/dL (3.5-5.0); Albumin Globulin Ratio 1.4 (1.0-2.8); Alkaline Phosphatase 85 U/L (38-126); Aspartate Aminotransferase 21 IU/L (17-59); BUN Creatinine Ratio 32.7 (6-22); Bilirubin Total 0.5 mg/dL (0.2-1.3); Blood Urea Nitrogen 17 mg/dL (9-20); Calcium 8.9 mg/dL (8.4-10.2); Carbon Dioxide 25 mmol/L (22-32); Chloride 103 mmol/L (98-107); Cholesterol 178 mg/dL (140-199); Estimated Glomerular Filt Rate > 60 mL/min (>60); Globulin 2.9 g/dL (1.7-4.1); Glucose 110 mg/dL (80-110); HDL Cholesterol 42 mg/dL (40-60); HEMOLYSIS 20 (0-50); LDL Cholesterol Calculated 111 mg/dL (<100); Potassium 4.3 mmol/L (3.4-5.1); Sodium 137 mmol/L (137-145); Triglycerides 124 mg/dL (35-150)
[2023-04-15 17:23] LABS: Prostate Specific Antigen Scrn 2.28 ng/mL (0.1-4.0)
[2023-04-15 18:03] LABS: Hemoglobin A1C% w Est Avg Glu 6.7 % (4.0-6.0)
== END ==
PROVIDERS: PCP Family Medicine; Referring Provider Family Medicine; Visit Provider Family Medicine
DX: E11.42 Type 2 diabetes mellitus with diabetic polyneuropathy (principal); E78.5 Hyperlipidemia, unspecified; I10 Essential (primary) hypertension; Z12.5 Encounter for screening for malignant neoplasm of prostate
CPT/HCPCS: 36415; 80053; 80061; 83036; 85025; G0103

== ENCOUNTER → 2023-07-12 10:56 | Outpatient (CLI) | payer OTHER, SELFPAY ==
[2022-11-04 14:04] VITALS: BMI 25.1
[2023-07-12 11:53] LABS: COVID-19 CEPHEID 4-PLEX PCR Negative (Negative); Influenza A - CEPHEID Flu A NEGATIVE (NEGATIVE); Influenza B - CEPHEID Flu B NEGATIVE (NEGATIVE); Respiratory Syncytial Virus Negative (Negative)
== END ==
PROVIDERS: PCP Family Medicine; Visit Provider Registered Nurse
DX: R05.1 Acute cough (principal)
CPT/HCPCS: 0241U

== ENCOUNTER 2023-08-11 12:18 | Emergency (ER) | payer OTHER, SELFPAY ==
[2022-11-04 14:04] VITALS: BMI 25.1
[2023-08-11] VITALS (15 sets, daily range): BP systolic 182–223; BP diastolic 80–109; PULSE 53–71; RESP 18–25; TEMP 36.6; O2SAT 94–98; BMI 25.1
--- NOTE | 2023-08-11 12:29 | DI.RAD.S_ITS ---
PROCEDURE: XR CHEST 1V INDICATIONS: chest pain TECHNIQUE: One view of the chest was acquired. COMPARISON: [facility], CR, XR CHEST 2V, 04/02/2020, 14:11. FINDINGS: Surgical changes and devices: None. Lungs and pleura: Lungs are clear. No pleural effusions or pneumothorax. Mediastinum: Mediastinal contours appear normal. Heart size is normal. Bones and chest wall: No suspicious bony lesions. Overlying soft tissues appear unremarkable. IMPRESSION: No acute cardiopulmonary abnormality is seen. Dictated by: Trista Green M.D. on 08/11/2023 at 13:01 Approved by: Trista Green M.D. on 08/11/2023 at 13:02
[2023-08-11] MEDS: ASPIRIN 81 MG CHEW TAB 324 MG PO (13:08)
[2023-08-11 14:42] LABS: INR 0.9 (0.9-1.3); Prothrombin Time 10.5 SECONDS (9.4-12.5)
[2023-08-11 14:43] LABS: Add Manual Diff / Slide Review NO; Basophils Absolute Auto 0 /uL (0-100); Basophils Percent Auto 1.2 % (0-2); Eosinophils Absolute Auto 0 /uL (0-450); Eosinophils Percent Auto 1.1 % (2-4); Hematocrit 51.8 % (41-53); Hemoglobin 17.9 g/dL (13.5-17.5); Lymphocytes Absolute Auto 1300 /uL (1100-4500); Lymphocytes Percent Auto 32.6 % (25-40); Mean Corpuscular HGB Conc 34.6 % (30-36); Mean Corpuscular Volume 95.6 fL (80-100); Monocytes Absolute Auto 800 /uL (0-900); Monocytes Percent Auto 20.4 % (3-14); Neutrophils Absolute Auto 1800 /uL (1500-7000); Neutrophils Percent Auto 44.7 % (50-75); Platelet Count 173 X10^3/uL (150-400); Red Blood Cell Count 5.42 X10^6/uL (4.5-5.9); Red Cell Distribution Width 14.7 % (11.6-14.8); White Blood Cell Count 3.9 X10^3/uL (4.5-11.0)
[2023-08-11 14:44] LABS: PTT Partial Thromboplastin Tim 32 SECONDS (25.1-36.5)
[2023-08-11 14:47] LABS: Alanine Aminotransferase 21 IU/L (<50); Albumin 4.6 g/dL (3.5-5.0); Albumin Globulin Ratio 1.2 (1.0-2.8); Alkaline Phosphatase 93 U/L (38-126); Aspartate Aminotransferase 27 IU/L (17-59); BUN Creatinine Ratio 25.9 (6-22); Bilirubin Total 0.7 mg/dL (0.2-1.3); Blood Urea Nitrogen 14 mg/dL (9-20); Calcium 9.6 mg/dL (8.4-10.2); Carbon Dioxide 26 mmol/L (22-32); Chloride 101 mmol/L (98-107); Creatine Kinase 37 U/L (55-170); Estimated Glomerular Filt Rate > 60 mL/min (>60); Globulin 3.7 g/dL (1.7-4.1); Glucose 124 mg/dL (80-110); HEMOLYSIS < 15 (0-50); Lipase 73 U/L (23-300); Potassium 4.4 mmol/L (3.4-5.1); Sodium 137 mmol/L (137-145); Total Protein 8.3 g/dL (6.3-8.2)
[2023-08-11 14:58] LABS: Troponin I < 0.012 ng/mL (0.01-0.034)
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
--- NOTE | 2023-08-11 17:53 | DI.CT.S_ITS ---
PROCEDURE: CT ANGIO HEAD AND NECK INDICATIONS: head fullness, blurry vision, left arm paresthesia TECHNIQUE: After the administration of intravenous contrast, 1 mm thick sections acquired from the aortic arch through the [place]. 3-dimensional uesfeyu-gzynkzkql-yokgzajjqr (MIP) and/or volume rendering reformats were acquired of the central intracranial vasculature and neck separately. For radiation dose reduction, the following was used: automated exposure control, adjustment of mA and/or kV according to patient size. COMPARISON: [facility], CT, CT HEAD/BRAIN WO CON, 08/11/2023, 18:00. FINDINGS: Image quality: Limited by bolus timing, with venous contamination. BRAIN: CSF spaces: Ventricles are normal in size and shape. Basal cisterns are patent. No extra-axial fluid collections. Brain: No significant abnormality of the brain can be seen. Skull and face: Calvarium and facial bones appear intact, without suspicious lesions. Orbits appear normal. Sinuses: Moderate mucosal thickening is seen within the ethmoid air cells. Sinuses and mastoids are otherwise relatively clear. HEAD CT ANGIOGRAPHY: Anterior circulation: Intracranial internal carotid arteries are normal in size and flow. The flow within the paired anterior cerebral arteries is normal and symmetric. The flow within the middle cerebral arteries is normal and symmetric. The anterior communicating artery is seen. No aneurysms are seen. Posterior circulation: Visualized portions of the vertebral arteries demonstrate normal caliber, and join to form a normal appearing basilar artery. Flow within the posterior cerebral arteries is normal and symmetric. No aneurysms are seen. NECK CT ANGIOGRAPHY: Carotid system: The great vessels demonstrate a conventional anatomy as they arise from the aortic arch. The origins of the common carotid arteries appear patent. The common carotid arteries demonstrate normal caliber and courses. The bifurcation regions demonstrate atherosclerotic irregularity and calcification, yet without a hemodynamically significant stenosis. The more distal internal carotid arteries demonstrate normal caliber, yet with moderate tortuosity. Posterior circulation: The origins of the vertebral arteries both appear widely patent. The more superior extracranial portions of both vertebral arteries also demonstrate normal courses and calibers. They join to form a normal appearing basilar artery. Soft tissues: Visualized neck soft tissues demonstrate no suspicious abnormalities. Bones: No suspicious bony lesions. Visualized cervical spine appears normally aligned. Focal lower cervical spine degenerative changes are seen. IMPRESSION: No significant intracranial arterial abnormality is seen. Within the arteries of the neck, no hemodynamically significant stenosis can be seen. Additional findings: Moderate ethmoid air cell mucosal thickening Moderate internal carotid artery tortuosity Moderate cervical spine degenerative change Any quantitative measurements of stenosis were performed using NASCET criteria. Dictated by: Edmund Mayorga M.D. on 08/11/2023 at 17:38 Approved by: Edmund Mayorga M.D. on 08/11/2023 at 17:41
--- NOTE | 2023-08-11 17:53 | DI.CT.S_ITS ---
PROCEDURE: CT HEAD/BRAIN WO CON INDICATIONS: head fullness, blurry vision, left arm paresthesia TECHNIQUE: Noncontrast 4.5 mm thick angled axial sections acquired from the foramen magnum to the vertex, with coronal and sagittal reformats. For radiation dose reduction, the following was used: automated exposure control, adjustment of mA and/or kV according to patient size. COMPARISON: [facility], CT, CT ANGIO HEAD AND NECK, 08/11/2023, 18:00. FINDINGS: Image quality: Diagnostic. CSF spaces: Basal cisterns are patent. No extra-axial fluid collections. The ventricles are symmetric in size and shape. Brain: No intracranial bleeds or masses. There is cerebral volume loss for age, with resultant ventricular and sulcal prominence. There are periventricular and deep white matter chronic small vessel ischemic changes. Focal low density can be seen involving the superior posterior left frontal lobe, as on series 2, image 24. There is intracranial internal carotid artery atherosclerosis. Skull and face: Calvarium and visualized facial bones appear intact, without suspicious lesions. Sinuses: There is moderate mucosal thickening seen within the ethmoid air cells. Visualized sinuses and mastoids are otherwise relatively clear. IMPRESSION: No acute intracranial pathology. No acute intracranial hemorrhage is seen. Focal low density seen involving the posterior superior left frontal lobe, which is attributed to a remote focal infarction. Additional findings: Moderate ethmoid air cell mucosal thickening Dictated by: Edmund Mayorga M.D. on 08/11/2023 at 17:41 Approved by: Edmund Mayorga M.D. on 08/11/2023 at 17:42
[2023-08-11] MEDS: HYDRALAZINE 20 MG/ML VIAL 10 MG IV (18:33)
[2023-08-11] MEDS: LOSARTAN 50 MG TABLET PO (18:33)
[2023-08-11 18:37] LABS: Troponin I < 0.012 ng/mL (0.01-0.034)
== END 2023-08-11 19:26 | disposition home or self-care (01) ==
PROVIDERS: Emergency Provider Emergency Medicine; PCP Family Medicine
DX: I10 Essential (primary) hypertension (principal); H53.8 Other visual disturbances; R20.2 Paresthesia of skin; F17.210 Nicotine dependence, cigarettes, uncomplicated
CPT/HCPCS: 36415; 70450; 70496; 70498; 71045; 80053; 82550; 83690; 83735; 84484; 85025; 85610; 85730; 93005; 93010; 96374; 99284; J0360; Q9967

== ENCOUNTER → 2023-10-11 10:12 | Outpatient (CLI) | payer OTHER, SELFPAY ==
[2022-11-04 14:04] VITALS: BMI 25.1
[2023-10-11 11:16] LABS: Alanine Aminotransferase 16 IU/L (<50); Albumin 4.2 g/dL (3.5-5.0); Albumin Globulin Ratio 1.4 (1.0-2.8); Alkaline Phosphatase 85 U/L (38-126); Aspartate Aminotransferase 19 IU/L (17-59); BUN Creatinine Ratio 32.3 (6-22); Bilirubin Total 0.6 mg/dL (0.2-1.3); Blood Urea Nitrogen 20 mg/dL (9-20); Carbon Dioxide 23 mmol/L (22-32); Chloride 102 mmol/L (98-107); Estimated Glomerular Filt Rate > 60 mL/min (>60); Globulin 3.1 g/dL (1.7-4.1); Glucose 169 mg/dL (80-110); HEMOLYSIS < 15 (0-50); Potassium 4.2 mmol/L (3.4-5.1); Sodium 138 mmol/L (137-145); Total Protein 7.3 g/dL (6.3-8.2)
[2023-10-11 14:57] LABS: Microalbumin Urine Random 9.6 mg/dL (0-1.6)
[2023-10-11 14:58] LABS: Creatinine Urine Random 92.3 mg/dL
[2023-10-12 07:27] LABS: x Labcorp Estim. Avg Glu (eAG) 177 mg/dL (.); x Labcorp Hemoglobin A1c 7.8 % (4.8-5.6)
== END ==
PROVIDERS: PCP Family Medicine; Referring Provider Family Medicine; Visit Provider Family Medicine
DX: I10 Essential (primary) hypertension (principal); E11.42 Type 2 diabetes mellitus with diabetic polyneuropathy
CPT/HCPCS: 36415; 80053; 82043; 82570; 83036

== ENCOUNTER → 2024-03-23 10:11 | Outpatient (CLI) | payer OTHER, SELFPAY ==
[2022-11-04 14:04] VITALS: BMI 25.1
[2024-03-23 12:34] LABS: Hemoglobin A1C% w Est Avg Glu 7.5 % (4.0-6.0)
== END ==
PROVIDERS: PCP Family Medicine; Referring Provider Family Medicine; Visit Provider Family Medicine
DX: E11.42 Type 2 diabetes mellitus with diabetic polyneuropathy (principal)
CPT/HCPCS: 36415; 83036

== ENCOUNTER → 2024-06-26 08:39 | Outpatient (CLI) | payer MEDICARE, OTHER, SELFPAY ==
[2022-11-04 14:04] VITALS: BMI 25.1
[2024-06-26 10:10] LABS: Hemoglobin A1C% w Est Avg Glu 7.8 % (4.0-6.0)
[2024-06-26 10:27] LABS: Add Manual Diff / Slide Review NO; Basophils Absolute Auto 100 /uL (0-100); Basophils Percent Auto 2.2 % (0-2); Eosinophils Absolute Auto 0 /uL (0-450); Hematocrit 50.4 % (41-53); Hemoglobin 17.5 g/dL (13.5-17.5); Lymphocytes Absolute Auto 1300 /uL (1100-4500); Lymphocytes Percent Auto 26.9 % (25-40); Mean Corpuscular HGB Conc 34.8 % (30-36); Mean Corpuscular Hemoglobin 33.4 PG (26-34); Mean Corpuscular Volume 95.9 fL (80-100); Monocytes Absolute Auto 600 /uL (0-900); Monocytes Percent Auto 12.3 % (3-14); Neutrophils Absolute Auto 2700 /uL (1500-7000); Neutrophils Percent Auto 57.6 % (50-75); Platelet Count 201 X10^3/uL (150-400); Red Blood Cell Count 5.25 X10^6/uL (4.5-5.9); Red Cell Distribution Width 14.2 % (11.6-14.8); White Blood Cell Count 4.8 X10^3/uL (4.5-11.0)
[2024-06-26 10:42] LABS: Alanine Aminotransferase 13 IU/L (<50); Albumin 4.2 g/dL (3.5-5.0); Albumin Globulin Ratio 1.4 (1.0-2.8); Alkaline Phosphatase 72 U/L (38-126); Aspartate Aminotransferase 19 IU/L (17-59); BUN Creatinine Ratio 39.4 (6-22); Bilirubin Total 0.7 mg/dL (0.2-1.3); Blood Urea Nitrogen 26 mg/dL (9-20); Carbon Dioxide 27 mmol/L (22-32); Chloride 102 mmol/L (98-107); Estimated Glomerular Filt Rate > 60 mL/min (>60); Globulin 2.9 g/dL (1.7-4.1); Glucose 155 mg/dL (80-110); HEMOLYSIS < 15 (0-50); Potassium 4.3 mmol/L (3.4-5.1); Sodium 138 mmol/L (137-145); Total Protein 7.1 g/dL (6.3-8.2)
[2024-06-26 11:11] LABS: Prostate Specific Antigen Scrn 0.611 ng/mL (0.1-4.0)
== END ==
PROVIDERS: PCP Family Medicine; Referring Provider Family Medicine; Visit Provider Family Medicine
DX: E78.5 Hyperlipidemia, unspecified (principal); E11.42 Type 2 diabetes mellitus with diabetic polyneuropathy; Z12.5 Encounter for screening for malignant neoplasm of prostate; I10 Essential (primary) hypertension; F43.9 Reaction to severe stress, unspecified
CPT/HCPCS: 36415; 80053; 83036; 85025; G0103

== ENCOUNTER → 2024-06-27 08:50 | Outpatient (CLI) | payer MEDICARE, OTHER, SELFPAY ==
[2022-11-04 14:04] VITALS: BMI 25.1
[2024-06-28 17:08] LABS: Fecal Immunochemical Test Negative (Negative)
== END ==
PROVIDERS: PCP Family Medicine; Referring Provider Family Medicine; Visit Provider Family Medicine
DX: Z12.11 Encounter for screening for malignant neoplasm of colon (principal); E78.5 Hyperlipidemia, unspecified; I10 Essential (primary) hypertension; E11.42 Type 2 diabetes mellitus with diabetic polyneuropathy; F43.9 Reaction to severe stress, unspecified
CPT/HCPCS: 82274

== ENCOUNTER → 2024-09-01 11:14 | Outpatient (CLI) | payer MEDICARE, OTHER, SELFPAY ==
[2022-11-04 14:04] VITALS: BMI 25.1
[2024-09-01 12:28] LABS: Add Manual Diff / Slide Review NO; Basophils Absolute Auto 0 /uL (0-100); Basophils Percent Auto 0.7 % (0-2); Eosinophils Absolute Auto 100 /uL (0-450); Eosinophils Percent Auto 1.4 % (2-4); Hematocrit 53.2 % (41-53); Hemoglobin 18.2 g/dL (13.5-17.5); Lymphocytes Absolute Auto 1500 /uL (1100-4500); Lymphocytes Percent Auto 27.2 % (25-40); Mean Corpuscular HGB Conc 34.2 % (30-36); Mean Corpuscular Hemoglobin 33.2 PG (26-34); Mean Corpuscular Volume 97.1 fL (80-100); Monocytes Absolute Auto 700 /uL (0-900); Monocytes Percent Auto 13.3 % (3-14); Neutrophils Absolute Auto 3100 /uL (1500-7000); Neutrophils Percent Auto 57.4 % (50-75); Platelet Count 209 X10^3/uL (150-400); Red Blood Cell Count 5.48 X10^6/uL (4.5-5.9); Red Cell Distribution Width 13.6 % (11.6-14.8); White Blood Cell Count 5.3 X10^3/uL (4.5-11.0)
[2024-09-01 12:29] LABS: Creatinine Urine Random 78.96 mg/dL
[2024-09-01 12:34] LABS: Microalbumin Urine Random 4.2 mg/dL (0-1.6)
[2024-09-01 12:38] LABS: Hemoglobin A1C% w Est Avg Glu 8.1 % (4.0-6.0)
[2024-09-01 12:50] LABS: Alanine Aminotransferase 15 IU/L (<50); Albumin 4.3 g/dL (3.5-5.0); Albumin Globulin Ratio 1.5 (1.0-2.8); Alkaline Phosphatase 69 U/L (38-126); Aspartate Aminotransferase 19 IU/L (17-59); BUN Creatinine Ratio 29.4 (6-22); Bilirubin Total 0.5 mg/dL (0.2-1.3); Blood Urea Nitrogen 20 mg/dL (9-20); Calcium 9.3 mg/dL (8.4-10.2); Carbon Dioxide 26 mmol/L (22-32); Chloride 101 mmol/L (98-107); Cholesterol 217 mg/dL (140-199); Estimated Glomerular Filt Rate > 60 mL/min (>60); Globulin 2.9 g/dL (1.7-4.1); Glucose 150 mg/dL (80-110); HDL Cholesterol 43 mg/dL (40-60); HEMOLYSIS < 15 (0-50); LDL Cholesterol Calculated 134 mg/dL (<100); Potassium 5.2 mmol/L (3.4-5.1); Sodium 137 mmol/L (137-145); Total Protein 7.2 g/dL (6.3-8.2); Triglycerides 199 mg/dL (35-150)
== END ==
PROVIDERS: PCP Family Medicine; Referring Provider Family Medicine; Visit Provider Family Medicine
DX: I10 Essential (primary) hypertension (principal); E11.42 Type 2 diabetes mellitus with diabetic polyneuropathy; E78.5 Hyperlipidemia, unspecified; K58.9 Irritable bowel syndrome, unspecified
CPT/HCPCS: 36415; 80053; 80061; 82043; 82570; 83036; 85025

== ENCOUNTER → 2025-05-22 09:29 | Outpatient (CLI) | payer MEDICARE, OTHER, SELFPAY ==
[2022-11-04 14:04] VITALS: BMI 25.1
[2025-05-22 10:02] LABS: Add Manual Diff / Slide Review NO; Hematocrit 48.5 % (41-53); Hemoglobin 17.4 g/dL (13.5-17.5); Lymphocytes Absolute Auto 1700 /uL (1100-4500); Mean Corpuscular HGB Conc 36.0 % (30-36); Mean Corpuscular Hemoglobin 34.5 PG (26-34); Mean Corpuscular Volume 96.0 fL (80-100); Platelet Count 218 X10^3/uL (150-400)
[2025-05-22 10:27] LABS: Hemoglobin A1C% w Est Avg Glu 6.1 % (4.0-6.0)
[2025-05-22 10:39] LABS: Alanine Aminotransferase 10 IU/L (<50); Albumin 4.4 g/dL (3.5-5.0); Albumin Globulin Ratio 1.5 (1.0-2.8); Alkaline Phosphatase 68 U/L (38-126); Blood Urea Nitrogen 13 mg/dL (9-20); Calcium 9.1 mg/dL (8.4-10.2); Carbon Dioxide 26 mmol/L (22-32); Chloride 101 mmol/L (98-107); Cholesterol 182 mg/dL (140-199); Estimated Glomerular Filt Rate > 60 mL/min (>60); Globulin 2.9 g/dL (1.7-4.1); Glucose 118 mg/dL (70-99); HDL Cholesterol 55 mg/dL (40-60); HEMOLYSIS 19 (0-50); Potassium 4.0 mmol/L (3.4-5.1); Sodium 136 mmol/L (137-145); Total Protein 7.3 g/dL (6.3-8.2); Triglycerides 175 mg/dL (35-150)
[2025-05-22 11:56] LABS: Microalbumi Creatinin Ratio Ur 24.0 ug/mg CR (<30)
== END ==
PROVIDERS: PCP Family Medicine; Referring Provider Family Medicine; Visit Provider Family Medicine
DX: E78.5 Hyperlipidemia, unspecified (principal); E11.42 Type 2 diabetes mellitus with diabetic polyneuropathy; Z12.5 Encounter for screening for malignant neoplasm of prostate; I10 Essential (primary) hypertension; R39.9 Unspecified symptoms and signs involving the genitourinary system
CPT/HCPCS: 36415; 80053; 80061; 82043; 82570; 83036; 85025; G0103